=== PATIENT | male | born 1985 | race Caucasian/White ===

== ENCOUNTER 2016-05-09 16:26 | Inpatient (IN) | payer OTHER ==
[2016-05-09 17:19] VITALS: BMI 23.6
--- NOTE | 2016-05-09 19:04 | HP ---
COWS - Scale Resting Pulse: 0= [place] 80 or Below Sweatin= Chills/Flushing Restless Observation: 3= Extraneous Movement Pupil Size: 0= Normal to Room Light Bone or Joint Aches: 1= Mild Discomfort Runny Nose/ Eye Tearin= Nasal Congestion GI Upset > 30mins: 1= Stomach Cramp Tremor Observation: 2= Slight Tremor Visible Yawning Observation: 1= 1-2x During Session Anxiety or Irritability: 2=Irritable/Anxious Goose Flesh Skin: 3=Piloerection COWS Score: 15 Admission [facility] Chief Complaint: WITHDRAWAL SX Allergies/Adverse Reactions: Allergies Allergy/AdvReac Type Severity Reaction Status Date / Time No Known Allergies Allergy Verified 05/09/16 18:39 History of Present Illness: 30 YEARS OLD MALE WITH LONG HISTORY OF OPIATE NICOTINE DEPENDENCE, DENIES MEDICAL DENIES MENTAL ILLNESS, LONGEST SOBRIETY 6 MONTHS, IS ADMITTED TO DETOX FELL 05/06/16 MULTIPLE SUPERFICIAL SKIN ABRASION ON HANDS, DENIES PAIN Exam Limitations: No Limitations - Ebola screening Have you traveled outside of the country in the last 21 days: No (N) Have you had contact with anyone from an Ebola affected area: No Have you been sick,other than usual withdrawal symptoms: No Do you have a fever: No - Review of Systems Constitutional: Chills, Loss of Appetite, Changes in sleep, Unintentional Wgt. Loss EENT: reports: No Symptoms Reported Respiratory: reports: No Symptoms reported Cardiac: reports: No Symptoms Reported GI: reports: Nausea, Poor Appetite, Poor Fluid Intake, Abdominal cramping : reports: No Symptoms Reported Musculoskeletal: reports: Back Pain, Joint Pain, Muscle Pain, Neck Pain Integumentary: reports: Change in Color (RIGHT INNER ELBOW) Neuro: reports: Tremors Endocrine: reports: No Symptoms Reported Hematology: reports: No Symptoms Reported Psychiatric: reports: Judgement Intact, Mood/Affect Appropiate, Orientated x3 Other Systems: Reviewed and Negative Patient History - Patient Medical History Hx Anemia: No Hx Asthma: No Hx Chronic Obstructive Pulmonary Disease (COPD): No Hx Cancer: No Hx Cardiac Disorders: No Hx Congestive Heart Failure: No Hx Hypertension: No Hx Hypercholesterolemia: No Hx Pacemaker: No HX Cerebrovascular Accident: No Hx Seizures: No Hx Dementia: No Hx Diabetes: No Hx Gastrointestinal Disorders: No Hx Liver Disease: No Hx Genitourinary Disorders: No Hx Sexually Transmitted Disorders: No Hx Renal Disease (ESRD): No Hx Thyroid Disease: No Hx Human Immunodeficiency Virus (HIV): No (negative ) Hx Hepatitis C: No Hx Depression: No Hx Suicide Attempt: No Hx Bipolar Disorder: No Hx Schizophrenia: No - Patient Surgical History Past Surgical History: Yes Hx Neurologic Surgery: No Hx Cataract Extraction: No Hx Cardiac Surgery: No Hx Lung Surgery: No Hx Breast Surgery: No Hx Breast Biopsy: No Hx Abdominal Surgery: No Hx Appendectomy: No Hx Cholecystectomy: No Hx Genitourinary Surgery: No Hx Orthopedic Surgery: Yes (RT. THUMB FOR CHIP BONE in 2004 in [facility]) Anesthesia Reaction: No - PPD History Previous Implant?: Yes Documented Results: Negative w/proof Implanted On Prior [facility] Admission?: Yes Date: 04/11/16 Results: 0 mm PPD to be Administered?: No - Smoking Cessation Smoking history: Current every day smoker Have you smoked in the past 12 months: Yes Aproximately how many cigarettes per day: 10 Cigars Per Day: 0 Hx Chewing Tobacco Use: No Initiated information on smoking cessation: Yes 'Breaking Loose' booklet given: 05/09/16 - Substance & Tx. History Hx Alcohol Use: No Hx Substance Use: Yes Substance Use Type: Cocaine, Opiates Hx Substance Use Treatment: Yes - Substances Abused Heroin Route: Injection Frequency: Daily Amount used: 8 BAGS Age of first use: 29 Date of Last Use: 05/09/16 Cocaine Route: Injection Frequency: Daily Amount used: 1 BAG Age of first use: 19 Date of Last Use: 05/08/16 Family Disease History - Family Disease History Family Disease History: Heart Disease: Father, Mother (, etoh) Admission Physical Exam S - Vital Signs Vital Signs: Vital Signs - 24 hr 05/09/16 17:16 Temperature 96.7 F L Pulse Rate 76 Respiratory 20 Rate Blood Pressure 109/58 - Physical General Appearance: Yes: Appropriately Dressed, Mild Distress, Thin, Tremorous, Irritable, Sweating, Anxious HEENTM: Yes: Hearing grossly Normal, Normal ENT Inspection, Normocephalic, Normal Voice Respiratory: Yes: Chest Non-Tender, Labored Respiration, No Respiratory Distress , No Accessory Muscle Use, Rhonchi, Inspiration Neck: Yes: Supple, Trachea in good position Breast: Yes: Breasts Symetrical Cardiology: Yes: Regular Rhythm, Regular Rate, S1, S2 Abdominal: Yes: Non Tender, Soft, Increased Bowel Sounds Genitourinary: Yes: Within Normal Limits Back: Yes: Normal Inspection Musculoskeletal: Yes: full range of Motion, Gait Steady Extremities: Yes: Normal Range of Motion, Non-Tender, Tremors, Other (HANDS MULTIPLE SKIN ABRASION SUPERFICIAL FELL 05/06/16) Neurological: Yes: Fully Oriented, Alert, Motor Strength 5/5, Normal Response Integumentary: Yes: Warm, Moist Lymphatic: Yes: Within Normal Limits - Diagnostic (1) Nicotine dependence Current Visit: Yes Status: Acute Qualifiers: Nicotine product type: cigarettes Substance use status: uncomplicated Qualified Code(s): F17.210 - Nicotine dependence, cigarettes, uncomplicated (2) Opioid dependence with withdrawal Current Visit: Yes Status: Acute (3) Weight decreased Current Visit: Yes Status: Acute (4) Skin abrasion Current Visit: Yes Status: Acute (5) Bronchitis Current Visit: Yes Status: Acute Comment: VENTOLIN SYMBICORT Cleared for Admission [facility] - Detox or Rehab [facility] Level of Care: Medically Managed Detox Regimen/Protocol: Methadone [facility] Breath Alcohol Content Breath Alcohol Content: 0 Urine Drug Screen - Results Drug Screen Negative: No Urine Drug Screen Results: OLI-Cocaine, OPI-Opiates, OXY-Oxycodone
[2016-05-09] MEDS ORDERED: MAGNESIUM HYDROX 2400MG/30ML ORAL SUSPENSION 30 ML CUP PO PRN (19:07)
[2016-05-09] MEDS ORDERED: guaiFENesin/D-METHORPHAN HB 10 ML UNIT-DOSE CUPS PO PRN (19:07)
[2016-05-09] MEDS ORDERED: NICOTINE POLACRILEX 2 MG GUM BC PRN (19:07)
[2016-05-09] MEDS ORDERED: ACETAMINOPHEN 325 MG TABLET (FP) PO PRN (19:07)
[2016-05-09] MEDS ORDERED: MAGNESIUM CITRATE 300 ML BOTTLE PO PRN (19:07)
[2016-05-09] MEDS ORDERED: LOPERAMIDE HCL 2 MG CAPSULE PO PRN (19:07)
[2016-05-09] MEDS ORDERED: diphenhydrAMINE HCL 50 MG CAPSULE PO PRN (19:07)
[2016-05-09] MEDS ORDERED: METHADONE HCL 10 MG TABLET (FOR DETOX USE ONLY) PO ONE ×2 (19:07→23:00)
[2016-05-09] MEDS ORDERED: IBUPROFEN 400 MG TABLET (FP) PO PRN (19:07)
[2016-05-09] MEDS ORDERED: MAG HYDROX/AL HYDROX/SIMETH 30 ML UNIT-DOSE CUP PO PRN (19:07)
[2016-05-09] MEDS ORDERED: MENTHOL/PHENOL 1 EACH UD MM PRN (19:07)
[2016-05-09] MEDS ORDERED: P-EPHED 60MG/TRIPROLIDI 2.5MG TABLET PO PRN (19:07)
[2016-05-09] MEDS ORDERED: BACITRACIN 0.9 GM PACKET TP ONE (19:08)
[2016-05-09] MEDS ORDERED: ALBUTEROL SO4 6.7 GM HFA INHALER IH PRN (19:11)
[2016-05-09] MEDS ORDERED: ALBUTEROL SO4 2.5/IPRATROPIUM 0.5 INH SOL 3 ML VIAL.NEB. NEB PRN (19:17)
[2016-05-09] MEDS: diazePAM 5 MG TABLET PO PRN ×2 (19:46→22:47)
[2016-05-09] MEDS: THIAMINE HCL 100 MG TABLET (FP) PO SCH (22:22)
[2016-05-09] MEDS: BUDESONIDE/FORMETEROL FUMARATE 80/4.5 mcg INHALER IH SCH (22:22)
[2016-05-10] MEDS: diazePAM 5 MG TABLET PO PRN ×4 (05:37→20:26)
[2016-05-10] MEDS ORDERED: METHADONE HCL 10 MG TABLET (FOR DETOX USE ONLY) PO ONE (10:00)
--- NOTE | 2016-05-10 10:07 | PN ---
BHS COWS - Scale Resting Pulse: 0= [place] 80 or Below Sweatin= Chills/Flushing Restless Observation: 3= Extraneous Movement Pupil Size: 2= Moderately Dilated Bone or Joint Aches: 4=Acute Joint/Muscle Pain Runny Nose/ Eye Tearin= Nasal Congestion GI Upset > 30mins: 1= Stomach Cramp Tremor Observation of Outstretched Hands: 1= Tremor [place], Not Seen Yawning Observation: 2= >3x During Session Anxiety or Irritability: 2=Irritable/Anxious Goose Flesh Skin: 0=Smooth Skin COWS Score: 17 BHS Progress Note (SOAP) Subjective: ANXIETY,SWEATS/CHILLS,FATIGUE. Objective: 05/10/16 10:06 Vital Signs Temperature 96.0 F L 05/10/16 09:29 Pulse Rate 80 05/10/16 09:29 Respiratory Rate 20 05/10/16 09:29 Blood Pressure 136/80 05/10/16 09:29 O2 Sat by Pulse Oximetry (%) LAB RESULTS PENDING Assessment: 05/10/16 10:07 WITHDRAWAL SX Plan: CONTINUE DETOX
[2016-05-10] MEDS: BUDESONIDE/FORMETEROL FUMARATE 80/4.5 mcg INHALER IH SCH ×2 (10:16→23:52)
[2016-05-10] MEDS: PRENATAL VITAMINS W/ FOLIC ACID TABLET (FP) PO SCH (10:16)
[2016-05-10] MEDS: NICOTINE 14 MG/24 HOURS TOPICAL PATCH TD SCH (10:16)
[2016-05-10 10:33] LABS: MCH 29.6 pg (25.7-33.7); MCHC 33.6 g/dl (32.0-35.9); MEAN CELL VOLUME 88.3 fl (80-96); MEAN PLT VOLUME 9.3 fl (7.5-11.1); PLATELET COUNT 196 K/MM3 (134-434); RDW 14.5 % (11.9-15.9); WHITE BLOOD COUNT 5.6 K/mm3 (4.0-10.0)
[2016-05-10 11:22] LABS: ALBUMIN 3.7 g/dl (3.4-5.0); ALK PHOS 66 U/L (45-117); ANION GAP 8 (8-16); BILIRUBIN,TOTAL 0.4 mg/dL (0.2-1.0); CALCIUM 9.2 mg/dL (8.5-10.1); CO2 29 mmol/L (21-32); CREATININE 0.8 mg/dL (0.7-1.3); GLUCOSE,RANDOM 87 mg/dL (74-106); SGOT/AST 18 U/L (15-37); SGPT/ALT 23 U/L (12-78); TOT PROT 6.6 g/dl (6.4-8.2)
--- NOTE | 2016-05-10 16:22 | EKG ---
Test Reason : Blood Pressure : / mmHG Vent. Rate : 067 BPM Atrial Rate : 067 BPM P-R Int : 152 ms QRS Dur : 100 ms QT Int : 396 ms P-R-T Axes : 055 032 032 degrees QTc Int : 418 ms NORMAL SINUS RHYTHM INCOMPLETE RIGHT BUNDLE BRANCH BLOCK BORDERLINE ECG NO PREVIOUS ECGS AVAILABLE Confirmed by STEFFANY BRASWELL MD ([id number]) on 05/10/2016 4:22:04 PM Referred By: Confirmed By:STEFFANY BRASWELL MD
[2016-05-10] MEDS: THIAMINE HCL 100 MG TABLET (FP) PO SCH (23:52)
[2016-05-11] MEDS: diazePAM 5 MG TABLET PO PRN ×4 (03:26→20:13)
[2016-05-11] MEDS ORDERED: METHADONE HCL 5 MG TABLET (FOR DETOX USE ONLY) PO ONE (10:00)
--- NOTE | 2016-05-11 10:00 | PN ---
BHS COWS - Scale Resting Pulse: 2= [place] 101-120 Sweatin= Chills/Flushing Restless Observation: 3= Extraneous Movement Pupil Size: 2= Moderately Dilated Bone or Joint Aches: 4=Acute Joint/Muscle Pain Runny Nose/ Eye Tearin= Nasal Congestion GI Upset > 30mins: 1= Stomach Cramp Tremor Observation of Outstretched Hands: 2= Slight Tremor Visible Yawning Observation: 1= 1-2x During Session Anxiety or Irritability: 2=Irritable/Anxious Goose Flesh Skin: 0=Smooth Skin COWS Score: 19 BHS Progress Note (SOAP) Subjective: ANXIETY,SWEATS/CHILLS/FATIGUE Objective: 05/11/16 09:59 Vital Signs Temperature 98.3 F 05/11/16 06:24 Pulse Rate 79 05/11/16 06:24 Respiratory Rate 18 05/11/16 06:24 Blood Pressure 139/81 05/11/16 06:24 O2 Sat by Pulse Oximetry (%) Laboratory Last Values WBC 5.6 K/mm3 (4.0-10.0) 05/10/16 06:30 RBC 4.74 M/mm3 (4.00-5.60) 05/10/16 06:30 Hgb 14.0 GM/dL (11.7-16.9) 05/10/16 06:30 Hct 41.8 % (35.4-49) 05/10/16 06:30 MCV 88.3 fl (80-96) 05/10/16 06:30 MCHC 33.6 g/dl (32.0-35.9) 05/10/16 06:30 RDW 14.5 % (11.9-15.9) 05/10/16 06:30 Plt Count 196 K/MM3 (134-434) 05/10/16 06:30 MPV 9.3 fl (7.5-11.1) 05/10/16 06:30 Sodium 141 mmol/L (136-145) 05/10/16 06:30 Potassium 4.3 mmol/L (3.5-5.1) 05/10/16 06:30 Chloride 104 mmol/L (98-107) 05/10/16 06:30 Carbon Dioxide 29 mmol/L (21-32) 05/10/16 06:30 Anion Gap 8 (8-16) 05/10/16 06:30 BUN 15 mg/dL (7-18) D 05/10/16 06:30 Creatinine 0.8 mg/dL (0.7-1.3) 05/10/16 06:30 Creat Clearance w eGFR > 60 (>60) 05/10/16 06:30 Random Glucose 87 mg/dL (74-106) 05/10/16 06:30 Calcium 9.2 mg/dL (8.5-10.1) 05/10/16 06:30 Total Bilirubin 0.4 mg/dL (0.2-1.0) 05/10/16 06:30 AST 18 U/L (15-37) 05/10/16 06:30 ALT 23 U/L (12-78) 05/10/16 06:30 Alkaline Phosphatase 66 U/L (45-117) 05/10/16 06:30 Total Protein 6.6 g/dl (6.4-8.2) 05/10/16 06:30 Albumin 3.7 g/dl (3.4-5.0) 05/10/16 06:30 RPR Titer Nonreactive (NONREACTIVE) 05/10/16 06:30 Hepatitis C Antibody <0.1 s/co ratio (0.0-0.9) 05/10/16 06:30 Assessment: 05/11/16 10:00 WITHDRAWAL SX Plan: CONTINUE DETOX
[2016-05-11] MEDS: NICOTINE 14 MG/24 HOURS TOPICAL PATCH TD SCH (10:04)
[2016-05-11] MEDS: PRENATAL VITAMINS W/ FOLIC ACID TABLET (FP) PO SCH (10:04)
[2016-05-11] MEDS: BUDESONIDE/FORMETEROL FUMARATE 80/4.5 mcg INHALER IH SCH ×2 (10:04→22:26)
[2016-05-11] MEDS: THIAMINE HCL 100 MG TABLET (FP) PO SCH (22:26)
[2016-05-12] MEDS: diazePAM 5 MG TABLET PO PRN (05:35)
[2016-05-12] MEDS ORDERED: METHADONE HCL 5 MG TABLET (FOR DETOX USE ONLY) PO ONE (10:00)
[2016-05-12 10:14] VITALS: BP 103/72; PULSE 87; TEMP 96.2
--- NOTE | 2016-05-12 10:20 | DS ---
[facility] Detox Discharge Summary Admission Date: 05/09/16 Discharge Date: 05/12/16 - History Present History: Alcohol Dependence, Cocaine Dependence, Opioid Dependence Additional Comments: PT DECLINED TO CONTINUE WITH DETOX. WHEN ASKED THE REASON, PT STATES " I JUST WANNA GET OUT OF HERE'. ALERT O X 3. NAD. PT SIGNED OUT AMA. Pertinent Past History: BRONCHITIS - Physical Exam Results Vital Signs: Vital Signs Temperature 96.2 F L 05/12/16 10:13 Pulse Rate 87 05/12/16 10:13 Respiratory Rate 18 05/12/16 10:13 Blood Pressure 103/72 05/12/16 10:13 O2 Sat by Pulse Oximetry (%) Pertinent Admission Physical Exam Findings: WITHDRAWAL SX Laboratory Last Values WBC 5.6 K/mm3 (4.0-10.0) 05/10/16 06:30 RBC 4.74 M/mm3 (4.00-5.60) 05/10/16 06:30 Hgb 14.0 GM/dL (11.7-16.9) 05/10/16 06:30 Hct 41.8 % (35.4-49) 05/10/16 06:30 MCV 88.3 fl (80-96) 05/10/16 06:30 MCHC 33.6 g/dl (32.0-35.9) 05/10/16 06:30 RDW 14.5 % (11.9-15.9) 05/10/16 06:30 Plt Count 196 K/MM3 (134-434) 05/10/16 06:30 MPV 9.3 fl (7.5-11.1) 05/10/16 06:30 Sodium 141 mmol/L (136-145) 05/10/16 06:30 Potassium 4.3 mmol/L (3.5-5.1) 05/10/16 06:30 Chloride 104 mmol/L (98-107) 05/10/16 06:30 Carbon Dioxide 29 mmol/L (21-32) 05/10/16 06:30 Anion Gap 8 (8-16) 05/10/16 06:30 BUN 15 mg/dL (7-18) D 05/10/16 06:30 Creatinine 0.8 mg/dL (0.7-1.3) 05/10/16 06:30 Creat Clearance w eGFR > 60 (>60) 05/10/16 06:30 Random Glucose 87 mg/dL (74-106) 05/10/16 06:30 Calcium 9.2 mg/dL (8.5-10.1) 05/10/16 06:30 Total Bilirubin 0.4 mg/dL (0.2-1.0) 05/10/16 06:30 AST 18 U/L (15-37) 05/10/16 06:30 ALT 23 U/L (12-78) 05/10/16 06:30 Alkaline Phosphatase 66 U/L (45-117) 05/10/16 06:30 Total Protein 6.6 g/dl (6.4-8.2) 05/10/16 06:30 Albumin 3.7 g/dl (3.4-5.0) 05/10/16 06:30 RPR Titer Nonreactive (NONREACTIVE) 05/10/16 06:30 Hepatitis C Antibody <0.1 s/co ratio (0.0-0.9) 05/10/16 06:30 - Medication Discharge Medications: Ambulatory Orders NK [No Known Home Medication] 03/30/15 - Diagnosis (1) Nicotine dependence Current Visit: Yes Status: Chronic Qualifiers: Nicotine product type: cigarettes Substance use status: uncomplicated Qualified Code(s): F17.210 - Nicotine dependence, cigarettes, uncomplicated (2) Opioid dependence with withdrawal Current Visit: Yes Status: Acute (3) Alcohol dependence with uncomplicated withdrawal Current Visit: No Status: Suspected (4) Cocaine dependence Current Visit: Yes Status: Acute Qualifiers: Substance use status: uncomplicated Qualified Code(s): F14.20 - Cocaine dependence, uncomplicated (5) Bronchitis Current Visit: Yes Status: Acute (6) Skin abrasion Current Visit: Yes Status: Acute - AMA Did Patient Leave Against Medical Advice: Yes (AMA)
[2016-05-12] MEDS: NICOTINE 14 MG/24 HOURS TOPICAL PATCH TD SCH (10:53)
[2016-05-12] MEDS: PRENATAL VITAMINS W/ FOLIC ACID TABLET (FP) PO SCH (10:53)
[2016-05-12] MEDS: BUDESONIDE/FORMETEROL FUMARATE 80/4.5 mcg INHALER IH SCH (10:53)
[2016-05-13] MEDS ORDERED: METHADONE HCL 10 MG TABLET (FOR DETOX USE ONLY) PO ONE (10:00)
[2016-05-14] MEDS ORDERED: METHADONE HCL 5 MG TABLET (FOR DETOX USE ONLY) PO ONE (06:00)
== END 2016-05-12 09:25 | disposition left against medical advice (07) | DRG 770 ==
LOC: YASAS 16:26 → Y3N 18:41
PROVIDERS: ADMIT Internal Medicine; ATTEND Internal Medicine
PROC: HZ2ZZZZ Detoxification Services for Substance Abuse Treatment (ICD-10-PCS; principal; 2016-05-09)
DX: F11.23 Opioid dependence with withdrawal (principal); F14.20 Cocaine dependence, uncomplicated; F17.210 Nicotine dependence, cigarettes, uncomplicated; J20.9 Acute bronchitis, unspecified; S60.512D Abrasion of left hand, subsequent encounter; S60.511D Abrasion of right hand, subsequent encounter; X58.XXXD Exposure to other specified factors, subsequent encounter; Z87.898 Personal history of other specified conditions
CPT/HCPCS: 36415; 80053; 85027; 86593; 86803; 93005; 93010

== ENCOUNTER 2016-05-27 13:28 | Inpatient (IN) | payer OTHER ==
[2016-05-27 16:01] VITALS: BMI 26.3
--- NOTE | 2016-05-27 16:59 | HP ---
COWS - Scale Resting Pulse: 0= [place] 80 or Below Sweatin=Flushed/Facial Moisture Restless Observation: 1= Difficult to Sit Still Pupil Size: 0= Normal to Room Light Bone or Joint Aches: 2= Severe Diffuse Aches Runny Nose/ Eye Tearin= Runny Nose/Eyes GI Upset > 30mins: 2= Nausea/Diarrhea Tremor Observation: 2= Slight Tremor Visible Yawning Observation: 2= >3x During Session Anxiety or Irritability: 2=Irritable/Anxious Goose Flesh Skin: 3=Piloerection COWS Score: 18 Admission ROS S - HPI Chief Complaint: I need to get my life back. Allergies/Adverse Reactions: Allergies Allergy/AdvReac Type Severity Reaction Status Date / Time No Known Allergies Allergy Verified 05/27/16 16:49 History of Present Illness: pt is a 31yr old male with a history of heroin dependence seeking detox for treatment. Exam Limitations: No Limitations - Ebola screening Have you traveled outside of the country in the last 21 days: No Have you had contact with anyone from an Ebola affected area: No Have you been sick,other than usual withdrawal symptoms: No Do you have a fever: No - Review of Systems Constitutional: Chills, Diaphoresis, Loss of Appetite, Night Sweats, Changes in sleep, Unintentional Wgt. Loss EENT: reports: Tearing, Nose Congestion Respiratory: reports: Cough Cardiac: reports: No Symptoms Reported GI: reports: Poor Appetite, Poor Fluid Intake : reports: No Symptoms Reported Musculoskeletal: reports: Back Pain Integumentary: reports: Flushing, Sweating Neuro: reports: Headache, Tingling, Tremors Endocrine: reports: Excessive Sweating, Flushing, Intolerance to Cold, Intolerance to Heat Hematology: reports: No Symptoms Reported Psychiatric: reports: Judgement Intact, Mood/Affect Appropiate, Orientated x3, Agitated, Anxious Other Systems: Reviewed and Negative Patient History - Patient Medical History Hx Anemia: No Hx Asthma: No Hx Chronic Obstructive Pulmonary Disease (COPD): No Hx Cancer: No Hx Cardiac Disorders: No Hx Congestive Heart Failure: No Hx Hypertension: No Hx Hypercholesterolemia: No Hx Pacemaker: No HX Cerebrovascular Accident: No Hx Seizures: No Hx Dementia: No Hx Diabetes: No Hx Gastrointestinal Disorders: No Hx Liver Disease: No Hx Genitourinary Disorders: No Hx Sexually Transmitted Disorders: No Hx Renal Disease (ESRD): No Hx Thyroid Disease: No Hx Human Immunodeficiency Virus (HIV): No (negative ) Hx Hepatitis C: No (negative) Hx Depression: No Hx Suicide Attempt: No (denies) Hx Bipolar Disorder: No Hx Schizophrenia: No - Patient Surgical History Past Surgical History: Yes Hx Neurologic Surgery: No Hx Cataract Extraction: No Hx Cardiac Surgery: No Hx Lung Surgery: No Hx Breast Surgery: No Hx Breast Biopsy: No Hx Abdominal Surgery: No Hx Appendectomy: No Hx Cholecystectomy: No Hx Genitourinary Surgery: No Hx Section: No Hx Orthopedic Surgery: Yes (RT. THUMB FOR CHIP BONE in 2004 in [facility]) Anesthesia Reaction: No - PPD History Previous Implant?: Yes Documented Results: Negative w/o proof Date: 04/11/16 Results: 0 mm PPD to be Administered?: No - Reproductive History Patient is a Female of Child Bearing Age (11 -55 yrs old): No - Smoking Cessation Smoking history: Current every day smoker Have you smoked in the past 12 months: Yes Aproximately how many cigarettes per day: 10 Cigars Per Day: 0 Hx Chewing Tobacco Use: No Initiated information on smoking cessation: Yes 'Breaking Loose' booklet given: 05/27/16 - Substance & Tx. History Hx Substance Use: Yes Substance Use Type: Heroin Hx Substance Use Treatment: Yes Family Disease History - Family Disease History Family Disease History: Heart Disease: Father, Mother (, etoh) Admission Physical Exam BHS - Vital Signs Vital Signs: Vital Signs - 24 hr 05/27/16 14:51 Temperature 96.1 F L Pulse Rate 68 Respiratory 18 Rate Blood Pressure 109/60 - Physical General Appearance: Yes: Mild Distress, Moderate Distress, Tremorous, Irritable , Sweating HEENTM: Yes: Normal Voice, Nasal Congestion, Rhinorrhea Respiratory: Yes: Lungs Clear, Normal Breath Sounds, No Respiratory Distress Neck: Yes: No masses,lesions,Nodules Breast: Yes: Within Normal Limits Cardiology: Yes: Regular Rhythm, Regular Rate, S1, S2 Abdominal: Yes: Normal Bowel Sounds, Non Tender, Soft Genitourinary: Yes: Within Normal Limits Back: Yes: Normal Inspection Musculoskeletal: Yes: full range of Motion Extremities: Yes: Normal Capillary Refill, Normal Inspection, Tremors Neurological: Yes: Fully Oriented, Alert, Normal Response Integumentary: Yes: Normal Color, Diaphoresis, Track [place] Lymphatic: Yes: Within Normal Limits - Diagnostic (1) Cocaine dependence Current Visit: Yes Status: Chronic Qualifiers: Substance use status: uncomplicated Qualified Code(s): F14.20 - Cocaine dependence, uncomplicated (2) Nicotine dependence Current Visit: Yes Status: Chronic Qualifiers: Nicotine product type: cigarettes Substance use status: uncomplicated Qualified Code(s): F17.210 - Nicotine dependence, cigarettes, uncomplicated (3) Opioid dependence with withdrawal Current Visit: Yes Status: Chronic (4) Weight decreased Current Visit: Yes Status: Chronic Cleared for Admission [facility] - Detox or Rehab [facility] Level of Care: Medically Managed Detox Regimen/Protocol: Methadone [facility] Breath Alcohol Content Breath Alcohol Content: 0 Urine Drug Screen - Results Drug Screen Negative: No Urine Drug Screen Results: THC-Marijuana, OLI-Cocaine, OPI-Opiates, OXY- Oxycodone
[2016-05-27] MEDS ORDERED: LOPERAMIDE HCL 2 MG CAPSULE PO PRN (17:07)
[2016-05-27] MEDS ORDERED: MENTHOL/PHENOL 1 EACH UD MM PRN (17:07)
[2016-05-27] MEDS ORDERED: MAGNESIUM CITRATE 300 ML BOTTLE PO PRN (17:07)
[2016-05-27] MEDS ORDERED: MAG HYDROX/AL HYDROX/SIMETH 30 ML UNIT-DOSE CUP PO PRN (17:07)
[2016-05-27] MEDS ORDERED: MAGNESIUM HYDROX 2400MG/30ML ORAL SUSPENSION 30 ML CUP PO PRN (17:07)
[2016-05-27] MEDS ORDERED: ACETAMINOPHEN 325 MG TABLET (FP) PO PRN (17:07)
[2016-05-27] MEDS ORDERED: IBUPROFEN 400 MG TABLET (FP) PO PRN (17:07)
[2016-05-27] MEDS ORDERED: P-EPHED 60MG/TRIPROLIDI 2.5MG TABLET PO PRN (17:07)
[2016-05-27] MEDS ORDERED: guaiFENesin/D-METHORPHAN HB 10 ML UNIT-DOSE CUPS PO PRN (17:07)
[2016-05-27] MEDS ORDERED: NICOTINE POLACRILEX 4 MG GUM BUC PRN (17:07)
[2016-05-27] MEDS ORDERED: METHADONE HCL 10 MG TABLET (FOR DETOX USE ONLY) PO ONE ×2 (18:30→23:00)
[2016-05-27] MEDS: diazePAM 5 MG TABLET PO PRN (19:19)
[2016-05-27] MEDS: diphenhydrAMINE HCL 50 MG CAPSULE PO PRN (22:36)
[2016-05-27] MEDS: THIAMINE HCL 100 MG TABLET (FP) PO SCH (22:36)
[2016-05-27 22:56] LABS: URINE APPEARANCE SLCLOUDY; URINE BILIRUBIN NEGATIVE (NEGATIVE); URINE BLOOD NEGATIVE (NEGATIVE); URINE COLOR YELLOW; URINE GLUCOSE (UA) NEGATIVE (NEGATIVE); URINE KETONE NEGATIVE (NEGATIVE); URINE LEUK ESTERASE NEGATIVE (NEGATIVE); URINE NITRITE NEGATIVE (NEGATIVE); URINE PROTEIN NEGATIVE (NEGATIVE); URINE UROBILINOGEN NEGATIVE E.U./dl (0.2-1.0)
[2016-05-28] MEDS: diazePAM 5 MG TABLET PO PRN ×3 (02:10→22:51)
[2016-05-28] MEDS: diphenhydrAMINE HCL 50 MG CAPSULE PO PRN ×2 (02:10→22:51)
[2016-05-28] MEDS ORDERED: METHADONE HCL 10 MG TABLET (FOR DETOX USE ONLY) PO ONE (10:00)
[2016-05-28] MEDS: PRENATAL VITAMINS W/ FOLIC ACID TABLET (FP) PO SCH (10:58)
[2016-05-28] MEDS: NICOTINE 21 MG/24 HOURS TOPICAL PATCH TD SCH (10:59)
[2016-05-28 11:05] LABS: MCH 29.4 pg (25.7-33.7); MCHC 33.4 g/dl (32.0-35.9); MEAN CELL VOLUME 88.1 fl (80-96); MEAN PLT VOLUME 8.8 fl (7.5-11.1); PLATELET COUNT 234 K/MM3 (134-434); RDW 14.2 % (11.9-15.9); WHITE BLOOD COUNT 5.8 K/mm3 (4.0-10.0)
[2016-05-28 11:11] LABS: ALBUMIN 3.6 g/dl (3.4-5.0); ALK PHOS 63 U/L (45-117); ANION GAP 10 (8-16); BILIRUBIN,TOTAL 0.3 mg/dL (0.2-1.0); CALCIUM 9.4 mg/dL (8.5-10.1); CO2 27 mmol/L (21-32); CREATININE 0.8 mg/dL (0.7-1.3); GLUCOSE,RANDOM 84 mg/dL (74-106); SGOT/AST 15 U/L (15-37); SGPT/ALT 18 U/L (12-78); TOT PROT 6.6 g/dl (6.4-8.2)
--- NOTE | 2016-05-28 12:48 | PN ---
S COWS - Scale Resting Pulse: 0= [place] 80 or Below Sweatin= Chills/Flushing Restless Observation: 3= Extraneous Movement Pupil Size: 1= Pupils >than Normal Bone or Joint Aches: 2= Severe Diffuse Aches Runny Nose/ Eye Tearin= Runny Nose/Eyes GI Upset > 30mins: 3= Vomiting/Diarrhea Tremor Observation of Outstretched Hands: 2= Slight Tremor Visible Yawning Observation: 1= 1-2x During Session Anxiety or Irritability: 2=Irritable/Anxious Goose Flesh Skin: 0=Smooth Skin COWS Score: 17 S Progress Note (SOAP) Subjective: ALERT,IRRITABLE,ANXIOUS,INTERRUPTED SLEEP,TREMOR Objective: 05/28/16 12:46 Vital Signs Temperature 96.9 F L 05/28/16 10:03 Pulse Rate 76 05/28/16 10:03 Respiratory Rate 16 05/28/16 10:03 Blood Pressure 130/84 05/28/16 10:03 O2 Sat by Pulse Oximetry (%) EKG NSR WITH SINUS ARRHYTHMIA NORMAL ECG 05/28/16 12:47 Laboratory Last Values WBC 5.8 K/mm3 (4.0-10.0) 05/28/16 08:00 RBC 4.72 M/mm3 (4.00-5.60) 05/28/16 08:00 Hgb 13.9 GM/dL (11.7-16.9) 05/28/16 08:00 Hct 41.6 % (35.4-49) 05/28/16 08:00 MCV 88.1 fl (80-96) 05/28/16 08:00 MCHC 33.4 g/dl (32.0-35.9) 05/28/16 08:00 RDW 14.2 % (11.9-15.9) 05/28/16 08:00 Plt Count 234 K/MM3 (134-434) 05/28/16 08:00 MPV 8.8 fl (7.5-11.1) 05/28/16 08:00 Sodium 142 mmol/L (136-145) 05/28/16 08:00 Potassium 4.1 mmol/L (3.5-5.1) 05/28/16 08:00 Chloride 105 mmol/L (98-107) 05/28/16 08:00 Carbon Dioxide 27 mmol/L (21-32) 05/28/16 08:00 Anion Gap 10 (8-16) 05/28/16 08:00 BUN 14 mg/dL (7-18) 05/28/16 08:00 Creatinine 0.8 mg/dL (0.7-1.3) 05/28/16 08:00 Creat Clearance w eGFR > 60 (>60) 05/28/16 08:00 Random Glucose 84 mg/dL (74-106) 05/28/16 08:00 Calcium 9.4 mg/dL (8.5-10.1) 05/28/16 08:00 Total Bilirubin 0.3 mg/dL (0.2-1.0) D 05/28/16 08:00 AST 15 U/L (15-37) 05/28/16 08:00 ALT 18 U/L (12-78) D 05/28/16 08:00 Alkaline Phosphatase 63 U/L (45-117) 05/28/16 08:00 Total Protein 6.6 g/dl (6.4-8.2) 05/28/16 08:00 Albumin 3.6 g/dl (3.4-5.0) 05/28/16 08:00 Urine Color Yellow 05/27/16 22:09 Urine Appearance Slcloudy 05/27/16 22:09 Urine pH 5.0 (5.0-8.0) D 05/27/16 22:09 Ur Specific [place] 1.027 (1.001-1.035) 05/27/16 22:09 Urine Protein Negative (NEGATIVE) 05/27/16 22:09 Urine Glucose (UA) Negative (NEGATIVE) 05/27/16 22:09 Urine Ketones Negative (NEGATIVE) 05/27/16 22:09 Urine Blood Negative (NEGATIVE) 05/27/16 22:09 Urine Nitrite Negative (NEGATIVE) 05/27/16 22:09 Urine Bilirubin Negative (NEGATIVE) 05/27/16 22:09 Urine Urobilinogen Negative E.U./dl (0.2-1.0) 05/27/16 22:09 Ur Leukocyte Esterase Negative (NEGATIVE) 05/27/16 22:09 Assessment: 05/28/16 12:47 WITHDRAWAL SYMPTOM Plan: CONTINUE DETOX
[2016-05-28 14:15] LABS: HIV 1 & 2 AB NEGATIVE; HIV 1 AGp24 NEGATIVE
--- NOTE | 2016-05-28 18:40 | EKG ---
Test Reason : Blood Pressure : / mmHG Vent. Rate : 067 BPM Atrial Rate : 067 BPM P-R Int : 144 ms QRS Dur : 100 ms QT Int : 412 ms P-R-T Axes : 068 022 048 degrees QTc Int : 435 ms NORMAL SINUS RHYTHM WITH SINUS ARRHYTHMIA NORMAL ECG WHEN COMPARED WITH ECG OF 09-MAY-2016 19:55, RSR' PATTERN IN V1 IS NO LONGER PRESENT Confirmed by YAMIL ROBLES, BETTY ([id number]) on 05/28/2016 6:39:50 PM Referred By: Quinten Lopez Confirmed By:BETTY LOBO MD
[2016-05-28] MEDS: THIAMINE HCL 100 MG TABLET (FP) PO SCH (22:51)
[2016-05-29] MEDS: diazePAM 5 MG TABLET PO PRN ×4 (05:59→23:17)
[2016-05-29] MEDS ORDERED: METHADONE HCL 5 MG TABLET (FOR DETOX USE ONLY) PO ONE (10:00)
[2016-05-29] MEDS: PRENATAL VITAMINS W/ FOLIC ACID TABLET (FP) PO SCH (10:32)
[2016-05-29] MEDS: NICOTINE 21 MG/24 HOURS TOPICAL PATCH TD SCH (10:33)
--- NOTE | 2016-05-29 11:45 | PN ---
BHS COWS - Scale Resting Pulse: 0= [place] 80 or Below Sweatin= Chills/Flushing Restless Observation: 3= Extraneous Movement Pupil Size: 1= Pupils >than Normal Bone or Joint Aches: 2= Severe Diffuse Aches Runny Nose/ Eye Tearin= Runny Nose/Eyes GI Upset > 30mins: 2= Nausea/Diarrhea Tremor Observation of Outstretched Hands: 2= Slight Tremor Visible Yawning Observation: 1= 1-2x During Session Anxiety or Irritability: 2=Irritable/Anxious Goose Flesh Skin: 0=Smooth Skin COWS Score: 16 S Progress Note (SOAP) Subjective: ALERT,IRRITABLE,ANXIOUS,INTERRUPTED SLEEP,PAIN IN THE BODY AND BACK Objective: 05/29/16 11:44 Vital Signs Temperature 96.6 F L 05/29/16 11:00 Pulse Rate 79 05/29/16 11:00 Respiratory Rate 20 05/29/16 11:00 Blood Pressure 121/76 05/29/16 11:00 O2 Sat by Pulse Oximetry (%) 05/29/16 11:44 Laboratory Last Values WBC 5.8 K/mm3 (4.0-10.0) 05/28/16 08:00 RBC 4.72 M/mm3 (4.00-5.60) 05/28/16 08:00 Hgb 13.9 GM/dL (11.7-16.9) 05/28/16 08:00 Hct 41.6 % (35.4-49) 05/28/16 08:00 MCV 88.1 fl (80-96) 05/28/16 08:00 MCHC 33.4 g/dl (32.0-35.9) 05/28/16 08:00 RDW 14.2 % (11.9-15.9) 05/28/16 08:00 Plt Count 234 K/MM3 (134-434) 05/28/16 08:00 MPV 8.8 fl (7.5-11.1) 05/28/16 08:00 Sodium 142 mmol/L (136-145) 05/28/16 08:00 Potassium 4.1 mmol/L (3.5-5.1) 05/28/16 08:00 Chloride 105 mmol/L (98-107) 05/28/16 08:00 Carbon Dioxide 27 mmol/L (21-32) 05/28/16 08:00 Anion Gap 10 (8-16) 05/28/16 08:00 BUN 14 mg/dL (7-18) 05/28/16 08:00 Creatinine 0.8 mg/dL (0.7-1.3) 05/28/16 08:00 Creat Clearance w eGFR > 60 (>60) 05/28/16 08:00 Random Glucose 84 mg/dL (74-106) 05/28/16 08:00 Calcium 9.4 mg/dL (8.5-10.1) 05/28/16 08:00 Total Bilirubin 0.3 mg/dL (0.2-1.0) D 05/28/16 08:00 AST 15 U/L (15-37) 05/28/16 08:00 ALT 18 U/L (12-78) D 05/28/16 08:00 Alkaline Phosphatase 63 U/L (45-117) 05/28/16 08:00 Total Protein 6.6 g/dl (6.4-8.2) 05/28/16 08:00 Albumin 3.6 g/dl (3.4-5.0) 05/28/16 08:00 Urine Color Yellow 05/27/16 22:09 Urine Appearance Slcloudy 05/27/16 22:09 Urine pH 5.0 (5.0-8.0) D 05/27/16 22:09 Ur Specific [place] 1.027 (1.001-1.035) 05/27/16 22:09 Urine Protein Negative (NEGATIVE) 05/27/16 22:09 Urine Glucose (UA) Negative (NEGATIVE) 05/27/16 22:09 Urine Ketones Negative (NEGATIVE) 05/27/16 22:09 Urine Blood Negative (NEGATIVE) 05/27/16 22:09 Urine Nitrite Negative (NEGATIVE) 05/27/16 22:09 Urine Bilirubin Negative (NEGATIVE) 05/27/16 22:09 Urine Urobilinogen Negative E.U./dl (0.2-1.0) 05/27/16 22:09 Ur Leukocyte Esterase Negative (NEGATIVE) 05/27/16 22:09 RPR Titer Nonreactive (NONREACTIVE) 05/28/16 08:00 HIV 1&2 Antibody Screen Negative 05/28/16 08:00 HIV P24 Antigen Negative 05/28/16 08:00 Assessment: WITHDRAWAL SYMPTOM Plan: CONTINUE DETOX
[2016-05-29] MEDS: THIAMINE HCL 100 MG TABLET (FP) PO SCH (22:55)
[2016-05-29] MEDS: diphenhydrAMINE HCL 50 MG CAPSULE PO PRN (23:18)
[2016-05-30] MEDS ORDERED: METHADONE HCL 5 MG TABLET (FOR DETOX USE ONLY) PO ONE (10:00)
[2016-05-30] MEDS: diazePAM 5 MG TABLET PO PRN ×2 (10:17→15:17)
[2016-05-30] MEDS: PRENATAL VITAMINS W/ FOLIC ACID TABLET (FP) PO SCH (10:17)
[2016-05-30] MEDS: NICOTINE 21 MG/24 HOURS TOPICAL PATCH TD SCH (10:18)
--- NOTE | 2016-05-30 11:31 | PN ---
S Progress Note (SOAP) Subjective: ALERT,IRRITABLE,ANXIOUS,INTERRUPTED SLEEP,TREMOR Objective: 05/30/16 11:30 Vital Signs Temperature 98.2 F 05/30/16 10:17 Pulse Rate 95 H 05/30/16 10:17 Respiratory Rate 20 05/30/16 10:17 Blood Pressure 123/73 05/30/16 10:17 O2 Sat by Pulse Oximetry (%) Assessment: 05/30/16 11:31 WITHDRAWAL SYMPTOM Plan: CONTINUE DETOX
[2016-05-30] MEDS: hydrOXYzine PAMOATE 50 MG CAPSULE (FP) PO PRN (19:18)
[2016-05-30] MEDS: THIAMINE HCL 100 MG TABLET (FP) PO SCH (23:09)
[2016-05-31] MEDS ORDERED: METHADONE HCL 10 MG TABLET (FOR DETOX USE ONLY) PO ONE (10:00)
[2016-05-31 10:26] VITALS: BP 121/71; PULSE 83; TEMP 97.5
[2016-05-31] MEDS: PRENATAL VITAMINS W/ FOLIC ACID TABLET (FP) PO SCH (10:27)
[2016-05-31] MEDS: hydrOXYzine PAMOATE 50 MG CAPSULE (FP) PO PRN (10:27)
[2016-05-31] MEDS: NICOTINE 21 MG/24 HOURS TOPICAL PATCH TD SCH (10:27)
--- NOTE | 2016-05-31 11:05 | PN ---
S Progress Note (SOAP) Subjective: ALERT,IRRITABLE,INTERRUPTED SLEEP,TREMOR Objective: 05/31/16 11:04 Vital Signs Temperature 97.5 F L 05/31/16 10:25 Pulse Rate 83 05/31/16 10:25 Respiratory Rate 18 05/31/16 10:25 Blood Pressure 121/71 05/31/16 10:25 O2 Sat by Pulse Oximetry (%) Assessment: 05/31/16 11:04 WITHDRAWAL SYMPTOM Plan: CONTINUE DETOX,DISCHARGE IN AM
--- NOTE | 2016-05-31 12:00 | PN ---
S Progress Note Note: patient is stable for discharge today,follow up with after care program as arrangement
--- NOTE | 2016-05-31 12:03 | DS ---
[facility] Detox Discharge Summary Admission Date: 05/27/16 Discharge Date: 05/31/16 - History Present History: Cocaine Dependence, Opioid Dependence Additional Comments: patient is stable for discharge today,follow up with after care program as arrangement Pertinent Past History: nicotine dependence - Physical Exam Results Vital Signs: Vital Signs Temperature 97.5 F L 05/31/16 10:25 Pulse Rate 83 05/31/16 10:25 Respiratory Rate 18 05/31/16 10:25 Blood Pressure 121/71 05/31/16 10:25 O2 Sat by Pulse Oximetry (%) Pertinent Admission Physical Exam Findings: withdrawal symptom - Treatment Hospital Course: Detox Protocol Followed, Detoxed Safely, Responded well, Discharged Condition Good Patient has Accepted a Rehab Referral to: declined - Medication Discharge Medications: Ambulatory Orders NK [No Known Home Medication] 03/30/15 - Diagnosis (1) Cocaine dependence Current Visit: Yes Status: Chronic Qualifiers: Substance use status: uncomplicated Qualified Code(s): F14.20 - Cocaine dependence, uncomplicated (2) Nicotine dependence Current Visit: Yes Status: Chronic Qualifiers: Nicotine product type: cigarettes Substance use status: uncomplicated Qualified Code(s): F17.210 - Nicotine dependence, cigarettes, uncomplicated (3) Opioid dependence with withdrawal Current Visit: Yes Status: Chronic (4) Weight decreased Current Visit: Yes Status: Chronic - AMA Did Patient Leave Against Medical Advice: No
[2016-06-01] MEDS ORDERED: METHADONE HCL 5 MG TABLET (FOR DETOX USE ONLY) PO ONE (06:00)
== END 2016-05-31 12:14 | disposition home or self-care (01) | DRG 773 ==
LOC: YASAS 13:28 → Y6N 18:15
PROVIDERS: ADMIT Internal Medicine; ATTEND Internal Medicine
PROC: HZ2ZZZZ Detoxification Services for Substance Abuse Treatment (ICD-10-PCS; principal; 2016-05-31)
DX: F11.23 Opioid dependence with withdrawal (principal); F14.20 Cocaine dependence, uncomplicated; F17.210 Nicotine dependence, cigarettes, uncomplicated; R63.4 Abnormal weight loss; Z68.26 Body mass index [BMI] 26.0-26.9, adult
CPT/HCPCS: 36415; 80053; 81003; 85027; 86593; 87389; 93005; 93010

== ENCOUNTER 2016-06-28 15:21 | Inpatient (IN) | payer OTHER ==
[2016-06-28 16:18] VITALS: BMI 24.2
--- NOTE | 2016-06-28 16:46 | HP ---
COWS - Scale Resting Pulse: 0= [place] 80 or Below Sweatin= Chills/Flushing Restless Observation: 1= Difficult to Sit Still Pupil Size: 0= Normal to Room Light Bone or Joint Aches: 2= Severe Diffuse Aches Runny Nose/ Eye Tearin= Nasal Congestion GI Upset > 30mins: 1= Stomach Cramp Tremor Observation: 2= Slight Tremor Visible Yawning Observation: 1= 1-2x During Session Anxiety or Irritability: 2=Irritable/Anxious Goose Flesh Skin: 3=Piloerection COWS Score: 14 Admission ROS S - HPI Chief Complaint: WITHDRAWAL SX Allergies/Adverse Reactions: Allergies Allergy/AdvReac Type Severity Reaction Status Date / Time No Known Allergies Allergy Verified 06/28/16 16:43 History of Present Illness: 31 YEARS OLD MALE WITH LONG HISTORY OF OPIATE NICOTINE DEPENDENCE, HAS COPD, WEIGHT LOSS DENIES MENTAL ILLNESS IS ADMITTED TO DETOX Exam Limitations: No Limitations - Ebola screening Have you traveled outside of the country in the last 21 days: No Have you had contact with anyone from an Ebola affected area: No Have you been sick,other than usual withdrawal symptoms: No Do you have a fever: No - Review of Systems Constitutional: Chills, Loss of Appetite, Changes in sleep, Unintentional Wgt. Loss, Unexplained wgt Loss EENT: reports: No Symptoms Reported Respiratory: reports: SOB with Exertion, Productive cough (GREENISH) Cardiac: reports: No Symptoms Reported GI: reports: Poor Appetite, Poor Fluid Intake, Abdominal cramping : reports: No Symptoms Reported Musculoskeletal: reports: Back Pain, Joint Pain, Muscle Pain, Neck Pain Integumentary: reports: Change in Color (BOTH INNER ELBOWS) Neuro: reports: Tremors Endocrine: reports: No Symptoms Reported Hematology: reports: No Symptoms Reported Psychiatric: reports: Judgement Intact, Orientated x3 Other Systems: Reviewed and Negative Patient History - Patient Medical History Hx Anemia: No Hx Asthma: No Hx Chronic Obstructive Pulmonary Disease (COPD): Yes Hx Cancer: No Hx Cardiac Disorders: No Hx Congestive Heart Failure: No Hx Hypertension: No Hx Hypercholesterolemia: No Hx Pacemaker: No HX Cerebrovascular Accident: No Hx Seizures: No Hx Dementia: No Hx Diabetes: No Hx Gastrointestinal Disorders: No Hx Liver Disease: No Hx Genitourinary Disorders: No Hx Sexually Transmitted Disorders: No Hx Renal Disease (ESRD): No Hx Thyroid Disease: No Hx Human Immunodeficiency Virus (HIV): No (negative ) Hx Hepatitis C: No (negative) Hx Depression: No Hx Suicide Attempt: No (denies) Hx Bipolar Disorder: No Hx Schizophrenia: No - Patient Surgical History Past Surgical History: Yes Hx Neurologic Surgery: No Hx Cataract Extraction: No Hx Cardiac Surgery: No Hx Lung Surgery: No Hx Breast Surgery: No Hx Breast Biopsy: No Hx Abdominal Surgery: No Hx Appendectomy: No Hx Cholecystectomy: No Hx Genitourinary Surgery: No Hx Orthopedic Surgery: Yes (RT. THUMB FOR CHIP BONE in 2004 in [facility]) Anesthesia Reaction: No - PPD History Previous Implant?: Yes Documented Results: Negative w/o proof Implanted On Prior [facility] Admission?: Yes Date: 04/11/16 Results: 0 mm PPD to be Administered?: No - Smoking Cessation Smoking history: Current every day smoker Have you smoked in the past 12 months: Yes Aproximately how many cigarettes per day: 20 Cigars Per Day: 0 Hx Chewing Tobacco Use: No Initiated information on smoking cessation: Yes 'Breaking Loose' booklet given: 06/28/16 - Substance & Tx. History Hx Alcohol Use: No Hx Substance Use: Yes Substance Use Type: Opiates Hx Substance Use Treatment: Yes - Substances Abused Heroin Route: Injection Frequency: Daily Amount used: 10 BAGS Age of first use: 25 Date of Last Use: 06/28/16 Xanax Route: Smoking Frequency: 1-2 times per week Amount used: 2 mg. Age of first use: 30 Date of Last Use: 06/26/16 Family Disease History - Family Disease History Family Disease History: Heart Disease: Father, Mother (, HEART ATTACK) Admission Physical Exam S - Vital Signs Vital Signs: Vital Signs - 24 hr 06/28/16 16:15 Temperature 96.4 F L Pulse Rate 69 Respiratory 18 Rate Blood Pressure 109/59 - Physical General Appearance: Yes: Appropriately Dressed, Mild Distress, Thin, Tremorous, Irritable, Sweating, Anxious HEENTM: Yes: Hearing grossly Normal, Normal ENT Inspection, Normocephalic, Normal Voice Respiratory: Yes: Lungs Clear, Normal Breath Sounds, No Accessory Muscle Use, Hyperresonant, Inspiration Neck: Yes: Supple, Trachea in good position Breast: Yes: Breasts Symetrical Cardiology: Yes: Regular Rhythm, Regular Rate, S1, S2 Abdominal: Yes: Non Tender, Soft Genitourinary: Yes: Within Normal Limits Back: Yes: Normal Inspection Musculoskeletal: Yes: full range of Motion, Gait Steady, Back pain Extremities: Yes: Normal Range of Motion, Non-Tender, Tremors, Other (ARMS OPIATE IV) Neurological: Yes: Fully Oriented, Alert, Motor Strength 5/5, Normal Mood/Affect , Normal Response Integumentary: Yes: Warm, Track [place] Lymphatic: Yes: Within Normal Limits - Diagnostic (1) Nicotine dependence Current Visit: Yes Status: Acute Qualifiers: Nicotine product type: cigarettes Substance use status: in withdrawal Qualified Code(s): F17.213 - Nicotine dependence, cigarettes, with withdrawal (2) Opioid dependence with withdrawal Current Visit: Yes Status: Acute (3) Weight decreased Current Visit: Yes Status: Acute (4) COPD (chronic obstructive pulmonary disease) Current Visit: Yes Status: Acute Qualifiers: COPD type: emphysema Emphysema type: unilateral Qualified Code(s ): J43.0 - Unilateral pulmonary emphysema [MacLeod's syndrome] Cleared for Admission [facility] - Detox or Rehab [facility] Level of Care: Medically Managed Detox Regimen/Protocol: Methadone [facility] Breath Alcohol Content Breath Alcohol Content: 0 Vital Signs - Vital Signs Vital Signs Refused: No Temperature: 96.4 F Temperature Source: Oral Pulse Rate: 69 Respiratory Rate: 18 Blood Pressure: 109/59 BP Location: Left Arm Blood Pressure Position: Sitting - Height Height: 5 ft 9 in - Weight Weight: 164 lb Weight Measurement Method: Standing Scale Body Mass Index (BMI): 24.2 - Bowel Function Bowel Movement: Yes Urine Drug Screen - Control Is Test Valid: Yes - Results Drug Screen Negative: No Urine Drug Screen Results: OPI-Opiates, OXY-Oxycodone
[2016-06-28] MEDS ORDERED: ACETAMINOPHEN 325 MG TABLET (FP) PO PRN (16:52)
[2016-06-28] MEDS ORDERED: MAGNESIUM HYDROX 2400MG/30ML ORAL SUSPENSION 30 ML CUP PO PRN (16:52)
[2016-06-28] MEDS ORDERED: LOPERAMIDE HCL 2 MG CAPSULE PO PRN (16:52)
[2016-06-28] MEDS ORDERED: MENTHOL/PHENOL 1 EACH UD MM PRN (16:52)
[2016-06-28] MEDS ORDERED: MAG HYDROX/AL HYDROX/SIMETH 30 ML UNIT-DOSE CUP PO PRN (16:52)
[2016-06-28] MEDS ORDERED: MAGNESIUM CITRATE 300 ML BOTTLE PO PRN (16:52)
[2016-06-28] MEDS ORDERED: NICOTINE POLACRILEX 4 MG GUM BC PRN (16:52)
[2016-06-28] MEDS ORDERED: IBUPROFEN 400 MG TABLET (FP) PO PRN (16:52)
[2016-06-28] MEDS ORDERED: P-EPHED 60MG/TRIPROLIDI 2.5MG TABLET PO PRN (16:52)
[2016-06-28] MEDS ORDERED: guaiFENesin/D-METHORPHAN HB 10 ML UNIT-DOSE CUPS PO PRN (16:52)
[2016-06-28] MEDS ORDERED: ALBUTEROL SO4 6.7 GM HFA INHALER IH PRN (16:54)
[2016-06-28] MEDS ORDERED: METHADONE HCL 10 MG TABLET (FOR DETOX USE ONLY) PO ONE ×2 (18:45→23:00)
[2016-06-28] MEDS: diazePAM 5 MG TABLET PO PRN (19:19)
[2016-06-28] MEDS: THIAMINE HCL 100 MG TABLET (FP) PO SCH (22:28)
[2016-06-28] MEDS: diphenhydrAMINE HCL 50 MG CAPSULE PO PRN (22:28)
[2016-06-28] MEDS: BUDESONIDE/FORMETEROL FUMARATE 80/4.5 mcg INHALER IH SCH (22:29)
[2016-06-28 22:56] LABS: URINE APPEARANCE CLEAR; URINE BILIRUBIN NEGATIVE (NEGATIVE); URINE BLOOD NEGATIVE (NEGATIVE); URINE COLOR YELLOW; URINE GLUCOSE (UA) NEGATIVE (NEGATIVE); URINE KETONE NEGATIVE (NEGATIVE); URINE LEUK ESTERASE NEGATIVE (NEGATIVE); URINE NITRITE NEGATIVE (NEGATIVE); URINE PROTEIN NEGATIVE (NEGATIVE); URINE UROBILINOGEN NEGATIVE E.U./dl (0.2-1.0)
[2016-06-29] MEDS: diazePAM 5 MG TABLET PO PRN ×4 (00:52→19:45)
[2016-06-29] MEDS ORDERED: TRIMETHOBENZAMIDE HCL 200MG/2ML INJ IM PRN (06:18)
[2016-06-29 09:55] LABS: MCH 28.8 pg (25.7-33.7); MCHC 32.8 g/dl (32.0-35.9); MEAN CELL VOLUME 87.9 fl (80-96); MEAN PLT VOLUME 9.2 fl (7.5-11.1); PLATELET COUNT 205 K/MM3 (134-434); RDW 14.5 % (11.9-15.9); WHITE BLOOD COUNT 13.1 K/mm3 (4.0-10.0)
[2016-06-29] MEDS ORDERED: METHADONE HCL 10 MG TABLET (FOR DETOX USE ONLY) PO ONE (10:00)
[2016-06-29 10:03] LABS: ALBUMIN 4.1 g/dl (3.4-5.0); ALK PHOS 66 U/L (45-117); ANION GAP 11 (8-16); BILIRUBIN,TOTAL 0.5 mg/dL (0.2-1.0); CALCIUM 9.2 mg/dL (8.5-10.1); CO2 27 mmol/L (21-32); CREATININE 0.8 mg/dL (0.7-1.3); GLUCOSE,RANDOM 93 mg/dL (74-106); SGOT/AST 15 U/L (15-37); SGPT/ALT 20 U/L (12-78); TOT PROT 7.1 g/dl (6.4-8.2)
[2016-06-29] MEDS: BUDESONIDE/FORMETEROL FUMARATE 80/4.5 mcg INHALER IH SCH ×2 (10:25→22:42)
[2016-06-29] MEDS: NICOTINE 21 MG/24 HOURS TOPICAL PATCH TD SCH (10:25)
[2016-06-29] MEDS: PRENATAL VITAMINS W/ FOLIC ACID TABLET (FP) PO SCH (10:25)
--- NOTE | 2016-06-29 12:52 | EKG ---
Test Reason : Blood Pressure : / mmHG Vent. Rate : 064 BPM Atrial Rate : 064 BPM P-R Int : 150 ms QRS Dur : 096 ms QT Int : 398 ms P-R-T Axes : 053 021 037 degrees QTc Int : 410 ms NORMAL SINUS RHYTHM NORMAL ECG WHEN COMPARED WITH ECG OF 27-MAY-2016 19:31, NO SIGNIFICANT CHANGE WAS FOUND Confirmed by KLAUS GARCIA MD ([id number]) on 06/29/2016 12:52:01 PM Referred By: Quinten Lopez Confirmed By:KLAUS GARCIA MD
--- NOTE | 2016-06-29 14:48 | PN ---
BHS COWS - Scale Resting Pulse: 1= [place] 81-100 Sweatin=Flushed/Facial Moisture Restless Observation: 1= Difficult to Sit Still Pupil Size: 0= Normal to Room Light Bone or Joint Aches: 2= Severe Diffuse Aches Runny Nose/ Eye Tearin= Runny Nose/Eyes GI Upset > 30mins: 2= Nausea/Diarrhea Tremor Observation of Outstretched Hands: 2= Slight Tremor Visible Yawning Observation: 1= 1-2x During Session Anxiety or Irritability: 2=Irritable/Anxious Goose Flesh Skin: 0=Smooth Skin COWS Score: 15 BHS Progress Note (SOAP) Subjective: Anxiety,tremors,sweating,interrupted sleep,restless Objective: 06/29/16 14:44 Last Vital Signs Temp Pulse Resp BP Pulse Ox 97.2 F L 94 H 20 148/82 06/29/16 09:47 06/29/16 09:47 06/29/16 09:47 06/29/16 09:47 Laboratory Tests 06/28/16 06/29/16 06/29/16 22:48 06:30 07:00 WBC 13.1 H D RBC 5.02 Hgb 14.5 Hct 44.1 MCV 87.9 MCHC 32.8 RDW 14.5 Plt Count 205 MPV 9.2 Sodium 139 Potassium 3.8 Chloride 101 Carbon Dioxide 27 Anion Gap 11 BUN 16 Creatinine 0.8 Creat Clearance w eGFR > 60 Random Glucose 93 Calcium 9.2 Total Bilirubin 0.5 D AST 15 ALT 20 Alkaline Phosphatase 66 Total Protein 7.1 Albumin 4.1 Urine Color Yellow Urine Appearance Clear Urine pH 5.0 Ur Specific [place] 1.026 Urine Protein Negative Urine Glucose (UA) Negative Urine Ketones Negative Urine Blood Negative Urine Nitrite Negative Urine Bilirubin Negative Urine Urobilinogen Negative Ur Leukocyte Esterase Negative RPR Titer 06/29/16 07:00 WBC RBC Hgb Hct MCV MCHC RDW Plt Count MPV Sodium Potassium Chloride Carbon Dioxide Anion Gap BUN Creatinine Creat Clearance w eGFR Random Glucose Calcium Total Bilirubin AST ALT Alkaline Phosphatase Total Protein Albumin Urine Color Urine Appearance Urine pH Ur Specific [place] Urine Protein Urine Glucose (UA) Urine Ketones Urine Blood Urine Nitrite Urine Bilirubin Urine Urobilinogen Ur Leukocyte Esterase RPR Titer Nonreactive labs noted Assessment: 06/29/16 14:47 Withdrawal sx. Plan: Continue detox
[2016-06-29 14:50] LABS: HIV 1 & 2 AB NEGATIVE; HIV 1 AGp24 NEGATIVE
[2016-06-29] MEDS: THIAMINE HCL 100 MG TABLET (FP) PO SCH (22:42)
[2016-06-30] MEDS: diazePAM 5 MG TABLET PO PRN ×4 (06:49→22:38)
[2016-06-30] MEDS ORDERED: METHADONE HCL 5 MG TABLET (FOR DETOX USE ONLY) PO ONE (10:00)
[2016-06-30] MEDS: BUDESONIDE/FORMETEROL FUMARATE 80/4.5 mcg INHALER IH SCH ×2 (10:32→22:38)
[2016-06-30] MEDS: PRENATAL VITAMINS W/ FOLIC ACID TABLET (FP) PO SCH (10:32)
[2016-06-30] MEDS: NICOTINE 21 MG/24 HOURS TOPICAL PATCH TD SCH (10:33)
--- NOTE | 2016-06-30 10:41 | PN ---
BHS COWS - Scale Resting Pulse: 2= [place] 101-120 Sweatin=Flushed/Facial Moisture Restless Observation: 1= Difficult to Sit Still Pupil Size: 0= Normal to Room Light Bone or Joint Aches: 2= Severe Diffuse Aches Runny Nose/ Eye Tearin= Runny Nose/Eyes GI Upset > 30mins: 2= Nausea/Diarrhea Tremor Observation of Outstretched Hands: 2= Slight Tremor Visible Yawning Observation: 1= 1-2x During Session Anxiety or Irritability: 2=Irritable/Anxious Goose Flesh Skin: 0=Smooth Skin COWS Score: 16 BHS Progress Note (SOAP) Subjective: Anxiety,tremors,interrupted sleep,sweating,restless, muscle aches Objective: 06/30/16 10:40 Last Vital Signs Temp Pulse Resp BP Pulse Ox 96.9 F L 103 H 16 121/78 06/30/16 09:38 06/30/16 09:38 06/30/16 09:38 06/30/16 09:38 Laboratory Tests 06/28/16 06/28/16 06/29/16 07:00 22:48 06:30 WBC 13.1 H D RBC 5.02 Hgb 14.5 Hct 44.1 MCV 87.9 MCHC 32.8 RDW 14.5 Plt Count 205 MPV 9.2 Sodium Potassium Chloride Carbon Dioxide Anion Gap BUN Creatinine Creat Clearance w eGFR Random Glucose Calcium Total Bilirubin AST ALT Alkaline Phosphatase Total Protein Albumin Urine Color Yellow Urine Appearance Clear Urine pH 5.0 Ur Specific [place] 1.026 Urine Protein Negative Urine Glucose (UA) Negative Urine Ketones Negative Urine Blood Negative Urine Nitrite Negative Urine Bilirubin Negative Urine Urobilinogen Negative Ur Leukocyte Esterase Negative RPR Titer Hepatitis C Antibody 0.3 HIV 1&2 Antibody Screen HIV P24 Antigen 06/29/16 06/29/16 06/29/16 07:00 07:00 07:00 WBC RBC Hgb Hct MCV MCHC RDW Plt Count MPV Sodium 139 Potassium 3.8 Chloride 101 Carbon Dioxide 27 Anion Gap 11 BUN 16 Creatinine 0.8 Creat Clearance w eGFR > 60 Random Glucose 93 Calcium 9.2 Total Bilirubin 0.5 D AST 15 ALT 20 Alkaline Phosphatase 66 Total Protein 7.1 Albumin 4.1 Urine Color Urine Appearance Urine pH Ur Specific [place] Urine Protein Urine Glucose (UA) Urine Ketones Urine Blood Urine Nitrite Urine Bilirubin Urine Urobilinogen Ur Leukocyte Esterase RPR Titer Nonreactive Hepatitis C Antibody HIV 1&2 Antibody Screen Negative HIV P24 Antigen Negative labs noted Assessment: 06/30/16 10:40 Withdrawal sx. Plan: Continue detox
[2016-06-30] MEDS: cloNIDine HCL 0.1 MG TABLET PO SCH ×2 (11:57→22:38)
[2016-06-30] MEDS: THIAMINE HCL 100 MG TABLET (FP) PO SCH (22:38)
[2016-06-30] MEDS: diphenhydrAMINE HCL 50 MG CAPSULE PO PRN (22:39)
[2016-07-01] MEDS: diazePAM 5 MG TABLET PO PRN ×2 (08:32→16:39)
[2016-07-01] MEDS ORDERED: METHADONE HCL 5 MG TABLET (FOR DETOX USE ONLY) PO ONE (10:00)
[2016-07-01] MEDS: BUDESONIDE/FORMETEROL FUMARATE 80/4.5 mcg INHALER IH SCH (10:35)
[2016-07-01] MEDS: PRENATAL VITAMINS W/ FOLIC ACID TABLET (FP) PO SCH (10:35)
[2016-07-01] MEDS: cloNIDine HCL 0.1 MG TABLET PO SCH ×2 (10:35→22:43)
[2016-07-01] MEDS: NICOTINE 21 MG/24 HOURS TOPICAL PATCH TD SCH (10:37)
--- NOTE | 2016-07-01 12:19 | PN ---
BHS Progress Note (SOAP) Subjective: ANXIETY,IRRITABILITY,ANGRY,UNABLE TO EXPRESS HIS DISCOMFORTS. BLOCKS COMMUNICATION FLOW DURING ROUNDS.."I DON'T WANNA TALK RIGHT NOW,CAN YOU LEAVE ME ALONE FOR NOW'. Objective: 07/01/16 12:13 Vital Signs Temperature 97.8 F 07/01/16 09:37 Pulse Rate 102 H 07/01/16 09:37 Respiratory Rate 20 07/01/16 09:37 Blood Pressure 116/79 07/01/16 09:37 O2 Sat by Pulse Oximetry (%) Assessment: 07/01/16 12:13 WITHDRAWAL SX Plan: CONTINUE DETOX EXPLAINED TO PATIENT WE ARE ABLE TO SERVE HIM BETTER WHEN HE EXPRESSES HIS DISCOMFORT FOR BETTER DETOX MANAGEMENT. PT AGREED WITH EXPLANATION.
[2016-07-01] MEDS: THIAMINE HCL 100 MG TABLET (FP) PO SCH (22:43)
[2016-07-01] MEDS: diphenhydrAMINE HCL 50 MG CAPSULE PO PRN (22:43)
[2016-07-02] MEDS: BUDESONIDE/FORMETEROL FUMARATE 80/4.5 mcg INHALER IH SCH ×2 (00:01→11:00)
[2016-07-02 09:44] VITALS: BP 115/74; PULSE 80; TEMP 96
[2016-07-02] MEDS ORDERED: METHADONE HCL 10 MG TABLET (FOR DETOX USE ONLY) PO ONE (10:00)
--- NOTE | 2016-07-02 10:23 | DS ---
[facility] Detox Discharge Summary Admission Date: 06/28/16 Discharge Date: 07/02/16 - History Present History: Cocaine Dependence, Opioid Dependence, Sedative Dependence Pertinent Past History: Smoker - Physical Exam Results Vital Signs: Vital Signs Temperature 96.0 F L 07/02/16 09:43 Pulse Rate 80 07/02/16 09:43 Respiratory Rate 18 07/02/16 09:43 Blood Pressure 115/74 07/02/16 09:43 O2 Sat by Pulse Oximetry (%) Laboratory Tests 06/28/16 06/28/16 06/29/16 07:00 22:48 06:30 WBC 13.1 H D RBC 5.02 Hgb 14.5 Hct 44.1 MCV 87.9 MCHC 32.8 RDW 14.5 Plt Count 205 MPV 9.2 Sodium Potassium Chloride Carbon Dioxide Anion Gap BUN Creatinine Creat Clearance w eGFR Random Glucose Calcium Total Bilirubin AST ALT Alkaline Phosphatase Total Protein Albumin Urine Color Yellow Urine Appearance Clear Urine pH 5.0 Ur Specific [place] 1.026 Urine Protein Negative Urine Glucose (UA) Negative Urine Ketones Negative Urine Blood Negative Urine Nitrite Negative Urine Bilirubin Negative Urine Urobilinogen Negative Ur Leukocyte Esterase Negative RPR Titer Hepatitis C Antibody 0.3 HIV 1&2 Antibody Screen HIV P24 Antigen 06/29/16 06/29/16 06/29/16 07:00 07:00 07:00 WBC RBC Hgb Hct MCV MCHC RDW Plt Count MPV Sodium 139 Potassium 3.8 Chloride 101 Carbon Dioxide 27 Anion Gap 11 BUN 16 Creatinine 0.8 Creat Clearance w eGFR > 60 Random Glucose 93 Calcium 9.2 Total Bilirubin 0.5 D AST 15 ALT 20 Alkaline Phosphatase 66 Total Protein 7.1 Albumin 4.1 Urine Color Urine Appearance Urine pH Ur Specific [place] Urine Protein Urine Glucose (UA) Urine Ketones Urine Blood Urine Nitrite Urine Bilirubin Urine Urobilinogen Ur Leukocyte Esterase RPR Titer Nonreactive Hepatitis C Antibody HIV 1&2 Antibody Screen Negative HIV P24 Antigen Negative labs noted - Medication Discharge Medications: Ambulatory Orders NK [No Known Home Medication] 03/30/15 - Diagnosis (1) Nicotine dependence Current Visit: Yes Status: Acute Qualifiers: Nicotine product type: cigarettes Substance use status: in withdrawal Qualified Code(s): F17.213 - Nicotine dependence, cigarettes, with withdrawal (2) Opioid dependence with withdrawal Current Visit: Yes Status: Acute (3) Cocaine dependence Current Visit: No Status: Chronic Qualifiers: Substance use status: uncomplicated Qualified Code(s): F14.20 - Cocaine dependence, uncomplicated - AMA Did Patient Leave Against Medical Advice: Yes
[2016-07-02] MEDS: cloNIDine HCL 0.1 MG TABLET PO SCH (11:00)
[2016-07-02] MEDS: PRENATAL VITAMINS W/ FOLIC ACID TABLET (FP) PO SCH (11:00)
[2016-07-02] MEDS: NICOTINE 21 MG/24 HOURS TOPICAL PATCH TD SCH (11:00)
[2016-07-03] MEDS ORDERED: METHADONE HCL 5 MG TABLET (FOR DETOX USE ONLY) PO ONE (06:00)
== END 2016-07-02 09:00 | disposition left against medical advice (07) | DRG 770 ==
LOC: YASAS 15:21 → Y3N 18:17
PROVIDERS: ADMIT Internal Medicine; ATTEND Internal Medicine
PROC: HZ2ZZZZ Detoxification Services for Substance Abuse Treatment (ICD-10-PCS; principal; 2016-07-02)
DX: F11.23 Opioid dependence with withdrawal (principal); F14.20 Cocaine dependence, uncomplicated; F17.213 Nicotine dependence, cigarettes, with withdrawal; J43.0 Unilateral pulmonary emphysema [MacLeod's syndrome]; R63.4 Abnormal weight loss; Z68.24 Body mass index [BMI] 24.0-24.9, adult
CPT/HCPCS: 36415; 80053; 81003; 85027; 86593; 87389; 93005; 93010

== ENCOUNTER 2016-08-16 21:04 | Inpatient (IN) | payer OTHER ==
[2016-08-16 21:44] VITALS: BMI 23.1
--- NOTE | 2016-08-16 22:18 | HP ---
COWS - Scale Resting Pulse: 0= [place] 80 or Below Sweatin= Chills/Flushing Restless Observation: 3= Extraneous Movement Pupil Size: 1= Pupils >than Normal Bone or Joint Aches: 1= Mild Discomfort Runny Nose/ Eye Tearin= Constantly Teary/Runny GI Upset > 30mins: 1= Stomach Cramp Tremor Observation: 2= Slight Tremor Visible Yawning Observation: 1= 1-2x During Session Anxiety or Irritability: 2=Irritable/Anxious Goose Flesh Skin: 0=Smooth Skin COWS Score: 16 Admission ROS S - [facility] Chief Complaint: WITHDRAWAL SYMPTOMS Allergies/Adverse Reactions: Allergies Allergy/AdvReac Type Severity Reaction Status Date / Time No Known Allergies Allergy Verified 08/16/16 22:09 History of Present Illness: 31 Y.O. MALE WITH A 11 YEAR HISTORY OF OPIATE DEPENDENCY IS SEEKING DETOX. HE WAS LAST HERE IN June, BUT LEFT AMA. HE REPORTS THAT HIS ONLY SIGNIFICANT PERIOD OF SOBRIETY WAS WHILE HE WAS INCARCERATED. Exam Limitations: No Limitations - Ebola screening Have you traveled outside of the country in the last 21 days: No (N) Have you had contact with anyone from an Ebola affected area: No Have you been sick,other than usual withdrawal symptoms: No Do you have a fever: No - Review of Systems Constitutional: Chills, Loss of Appetite, Malaise, Changes in sleep, Unintentional Wgt. Loss EENT: reports: Blurred Vision, Tearing, Nose Congestion Respiratory: reports: Wheezing Cardiac: reports: No Symptoms Reported GI: reports: Poor Appetite : reports: Other (HESITANCY) Musculoskeletal: reports: Muscle Weakness Integumentary: reports: Other (TRACK CURRY) Neuro: reports: Tremors Endocrine: reports: No Symptoms Reported Hematology: reports: No Symptoms Reported Psychiatric: reports: Anxious Other Systems: Reviewed and Negative Patient History - Patient Medical History Hx Anemia: No Hx Asthma: No Hx Chronic Obstructive Pulmonary Disease (COPD): No Hx Cancer: No Hx Cardiac Disorders: No Hx Congestive Heart Failure: No Hx Hypertension: No Hx Hypercholesterolemia: No Hx Pacemaker: No HX Cerebrovascular Accident: No Hx Seizures: No Hx Dementia: No Hx Diabetes: No Hx Gastrointestinal Disorders: No Hx Liver Disease: No Hx Genitourinary Disorders: No Hx Sexually Transmitted Disorders: No Hx Renal Disease (ESRD): No Hx Thyroid Disease: No Hx Human Immunodeficiency Virus (HIV): No (negative ) Hx Hepatitis C: No (negative) Hx Depression: No Hx Suicide Attempt: No (denies) Hx Bipolar Disorder: No Hx Schizophrenia: No - Patient Surgical History Past Surgical History: Yes Hx Neurologic Surgery: No Hx Cataract Extraction: No Hx Cardiac Surgery: No Hx Lung Surgery: No Hx Breast Surgery: No Hx Breast Biopsy: No Hx Abdominal Surgery: No Hx Appendectomy: No Hx Cholecystectomy: No Hx Genitourinary Surgery: No Hx Section: No Hx Orthopedic Surgery: Yes (RT. THUMB FOR CHIP BONE in 2004 in [facility]) Anesthesia Reaction: No - PPD History Previous Implant?: Yes Documented Results: Negative w/proof Implanted On Prior [facility] Admission?: Yes Date: 04/11/16 Results: 0 mm PPD to be Administered?: No - Reproductive History Patient is a Female of Child Bearing Age (11 -55 yrs old): No - Smoking Cessation Smoking history: Current every day smoker Have you smoked in the past 12 months: Yes Aproximately how many cigarettes per day: 20 Cigars Per Day: 0 Hx Chewing Tobacco Use: No Initiated information on smoking cessation: Yes 'Breaking Loose' booklet given: 08/16/16 - Substance & Tx. History Hx Alcohol Use: Yes Hx Substance Use: Yes Substance Use Type: Heroin Hx Substance Use Treatment: Yes (DETOX AND REHAB) - Substances Abused Heroin Route: Injection Frequency: Daily Amount used: 10 bags Age of first use: 25 Date of Last Use: 08/16/16 Family Disease History - Family Disease History Family Disease History: Heart Disease: Father, Mother (, HEART ATTACK) Admission Physical Exam S - Vital Signs Vital Signs: Vital Signs - 24 hr 08/16/16 21:41 Temperature 96.9 F L Pulse Rate 78 Respiratory 20 Rate Blood Pressure 134/85 - Physical General Appearance: Yes: Thin, Tremorous, Irritable, Sweating, Anxious HEENTM: Yes: Normocephalic, Normal Voice Respiratory: Yes: Chest Non-Tender, Lungs Clear, Normal Breath Sounds, No Respiratory Distress, No Accessory Muscle Use Neck: Yes: No masses,lesions,Nodules, Trachea in good position Breast: Yes: Breast Exam Deferred Cardiology: Yes: Regular Rhythm, Regular Rate Abdominal: Yes: Normal Bowel Sounds, Non Tender, Flat Genitourinary: Yes: Hesitency Back: Yes: Normal Inspection Musculoskeletal: Yes: full range of Motion, Gait Steady Extremities: Yes: Non-Tender Neurological: Yes: Alert, Normal Mood/Affect, Normal Response Integumentary: Yes: Track [place] Lymphatic: Yes: Within Normal Limits - Diagnostic (1) Nicotine dependence Current Visit: Yes Status: Chronic Qualifiers: Nicotine product type: cigarettes Substance use status: in withdrawal Qualified Code(s): F17.213 - Nicotine dependence, cigarettes, with withdrawal (2) Opioid dependence with withdrawal Current Visit: Yes Status: Chronic (3) Weight decreased Current Visit: Yes Status: Acute Cleared for Admission [facility] - Detox or Rehab [facility] Level of Care: Medically Managed Detox Regimen/Protocol: Methadone [facility] Breath Alcohol Content Breath Alcohol Content: 0 Urine Drug Screen - Results Drug Screen Negative: No Urine Drug Screen Results: OPI-Opiates, OXY-Oxycodone
[2016-08-16] MEDS ORDERED: P-EPHED 60MG/TRIPROLIDI 2.5MG TABLET PO PRN (22:28)
[2016-08-16] MEDS ORDERED: LOPERAMIDE HCL 2 MG CAPSULE PO PRN (22:28)
[2016-08-16] MEDS ORDERED: METHADONE HCL 10 MG TABLET (FOR DETOX USE ONLY) PO ONE ×2 (22:28→23:00)
[2016-08-16] MEDS ORDERED: IBUPROFEN 400 MG TABLET (FP) PO PRN (22:28)
[2016-08-16] MEDS ORDERED: ACETAMINOPHEN 325 MG TABLET (FP) PO PRN (22:28)
[2016-08-16] MEDS ORDERED: guaiFENesin/D-METHORPHAN HB 10 ML UNIT-DOSE CUPS PO PRN (22:28)
[2016-08-16] MEDS ORDERED: MAG HYDROX/AL HYDROX/SIMETH 30 ML UNIT-DOSE CUP PO PRN (22:28)
[2016-08-16] MEDS ORDERED: MAGNESIUM CITRATE 300 ML BOTTLE PO PRN (22:28)
[2016-08-16] MEDS ORDERED: NICOTINE POLACRILEX 2 MG GUM BC PRN (22:28)
[2016-08-16] MEDS ORDERED: MENTHOL/PHENOL 1 EACH UD MM PRN (22:28)
[2016-08-16] MEDS ORDERED: MAGNESIUM HYDROX 2400MG/30ML ORAL SUSPENSION 30 ML CUP PO PRN (22:28)
[2016-08-16] MEDS ORDERED: hydrOXYzine PAMOATE 50 MG CAPSULE (FP) PO PRN (22:28)
[2016-08-16] MEDS: diazePAM 5 MG TABLET PO PRN (23:20)
[2016-08-16] MEDS: diphenhydrAMINE HCL 50 MG CAPSULE PO PRN (23:21)
[2016-08-17] MEDS: diazePAM 5 MG TABLET PO PRN ×4 (06:03→19:08)
--- NOTE | 2016-08-17 08:24 | EKG ---
Test Reason : Blood Pressure : / mmHG Vent. Rate : 057 BPM Atrial Rate : 057 BPM P-R Int : 132 ms QRS Dur : 096 ms QT Int : 408 ms P-R-T Axes : 049 035 056 degrees QTc Int : 397 ms SINUS BRADYCARDIA OTHERWISE NORMAL ECG WHEN COMPARED WITH ECG OF 28-JUN-2016 19:08, NO SIGNIFICANT CHANGE WAS FOUND Confirmed by STEFFANY BRASWELL MD ([id number]) on 08/17/2016 8:24:03 AM Referred By: Confirmed By:STEFFANY BRASWELL MD
[2016-08-17] MEDS ORDERED: METHADONE HCL 10 MG TABLET (FOR DETOX USE ONLY) PO ONE (10:00)
[2016-08-17] MEDS: PRENATAL VITAMINS W/ FOLIC ACID TABLET (FP) PO SCH (10:30)
[2016-08-17] MEDS: NICOTINE 21 MG/24 HOURS TOPICAL PATCH TD SCH (10:30)
[2016-08-17 10:40] LABS: ALBUMIN 3.7 g/dl (3.4-5.0); ALK PHOS 58 U/L (45-117); ANION GAP 10 (8-16); BILIRUBIN,TOTAL 0.3 mg/dL (0.2-1.0); CO2 27 mmol/L (21-32); COCKROFT - GAULT 135.99; CREATININE 0.8 mg/dL (0.7-1.3); GLUCOSE,RANDOM 89 mg/dL (74-106); SGOT/AST 19 U/L (15-37); SGPT/ALT 24 U/L (12-78); TOT PROT 6.6 g/dl (6.4-8.2)
[2016-08-17 10:43] LABS: MCH 28.3 pg (25.7-33.7); MCHC 32.6 g/dl (32.0-35.9); MEAN CELL VOLUME 86.8 fl (80-96); PLATELET COUNT 209 K/MM3 (134-434); RDW 13.9 % (11.9-15.9); WHITE BLOOD COUNT 6.6 K/mm3 (4.0-10.0)
[2016-08-17 12:55] LABS: HIV 1 & 2 AB NEGATIVE; HIV 1 AGp24 NEGATIVE
--- NOTE | 2016-08-17 13:15 | PN ---
S COWS - Scale Resting Pulse: 0= [place] 80 or Below Sweatin= No chills or Flushing Restless Observation: 1= Difficult to Sit Still Pupil Size: 0= Normal to Room Light Bone or Joint Aches: 2= Severe Diffuse Aches Runny Nose/ Eye Tearin= Nasal Congestion GI Upset > 30mins: 2= Nausea/Diarrhea Tremor Observation of Outstretched Hands: 2= Slight Tremor Visible Yawning Observation: 1= 1-2x During Session Anxiety or Irritability: 2=Irritable/Anxious Goose Flesh Skin: 3=Piloerection COWS Score: 14 [facility] Progress Note (SOAP) Subjective: Tremors, Fatigue, Body aches, Nausea. Objective: PT. A & O X 3. 08/17/16 13:12 Vital Signs Temperature 96.5 F L 08/17/16 09:50 Pulse Rate 80 08/17/16 09:50 Respiratory Rate 20 08/17/16 09:50 Blood Pressure 121/77 08/17/16 09:50 O2 Sat by Pulse Oximetry (%) Laboratory Last Values WBC 6.6 K/mm3 (4.0-10.0) D 08/17/16 07:00 RBC 4.86 M/mm3 (4.00-5.60) 08/17/16 07:00 Hgb 13.7 GM/dL (11.7-16.9) 08/17/16 07:00 Hct 42.2 % (35.4-49) 08/17/16 07:00 MCV 86.8 fl (80-96) 08/17/16 07:00 MCHC 32.6 g/dl (32.0-35.9) 08/17/16 07:00 RDW 13.9 % (11.9-15.9) 08/17/16 07:00 Plt Count 209 K/MM3 (134-434) 08/17/16 07:00 MPV 9.0 fl (7.5-11.1) 08/17/16 07:00 Sodium 142 mmol/L (136-145) 08/17/16 07:00 Potassium 4.1 mmol/L (3.5-5.1) 08/17/16 07:00 Chloride 105 mmol/L (98-107) 08/17/16 07:00 Carbon Dioxide 27 mmol/L (21-32) 08/17/16 07:00 Anion Gap 10 (8-16) 08/17/16 07:00 BUN 13 mg/dL (7-18) 08/17/16 07:00 Creatinine 0.8 mg/dL (0.7-1.3) 08/17/16 07:00 Creat Clearance w eGFR > 60 (>60) 08/17/16 07:00 Random Glucose 89 mg/dL (74-106) 08/17/16 07:00 Calcium 9.0 mg/dL (8.5-10.1) 08/17/16 07:00 Total Bilirubin 0.3 mg/dL (0.2-1.0) D 08/17/16 07:00 AST 19 U/L (15-37) D 08/17/16 07:00 ALT 24 U/L (12-78) 08/17/16 07:00 Alkaline Phosphatase 58 U/L (45-117) 08/17/16 07:00 Total Protein 6.6 g/dl (6.4-8.2) 08/17/16 07:00 Albumin 3.7 g/dl (3.4-5.0) 08/17/16 07:00 HIV 1&2 Antibody Screen Negative 08/17/16 07:00 HIV P24 Antigen Negative 08/17/16 07:00 LABS NOTED. Assessment: 08/17/16 13:13 WITHDRAWAL SYMPTOMS. Plan: CONTINUE DETOX. ADVISED PATIENT TO FOLLOW-UP WITH PHOTOGRAPH RETOUCHER / REHAB MEDICAL PROVIDER AFTER DISCHARGE FROM DETOX [facility] GENERAL MEDICAL ASSESSMENT AND FOR ABNORMAL ADMISSION LAB VALUES.
[2016-08-17] MEDS: THIAMINE HCL 100 MG TABLET (FP) PO SCH (22:43)
[2016-08-18] MEDS: diazePAM 5 MG TABLET PO PRN ×5 (02:55→23:36)
[2016-08-18] MEDS: ONDANSETRON *ODT* 4 MG TABLET SL PRN (08:20)
[2016-08-18] MEDS ORDERED: METHADONE HCL 5 MG TABLET (FOR DETOX USE ONLY) PO ONE (10:00)
[2016-08-18] MEDS: NICOTINE 21 MG/24 HOURS TOPICAL PATCH TD SCH (10:10)
[2016-08-18] MEDS: PRENATAL VITAMINS W/ FOLIC ACID TABLET (FP) PO SCH (10:11)
--- NOTE | 2016-08-18 11:54 | PN ---
[facility] COWS - Scale Resting Pulse: 1= [place] 81-100 Sweatin=Flushed/Facial Moisture Restless Observation: 1= Difficult to Sit Still Pupil Size: 0= Normal to Room Light Bone or Joint Aches: 1= Mild Discomfort Runny Nose/ Eye Tearin= Runny Nose/Eyes GI Upset > 30mins: 2= Nausea/Diarrhea Tremor Observation of Outstretched Hands: 2= Slight Tremor Visible Yawning Observation: 1= 1-2x During Session Anxiety or Irritability: 2=Irritable/Anxious Goose Flesh Skin: 0=Smooth Skin COWS Score: 14 [facility] Progress Note (SOAP) Subjective: Anxiety,nausea,sweating,interrupted sleep,restless,muscle aches Objective: 08/18/16 11:54 Vital Signs - 8 hr 08/18/16 08/18/16 06:32 09:15 Temperature 96.3 F L 98.5 F Pulse Rate 86 89 Respiratory 18 18 Rate Blood Pressure 116/78 125/85 Laboratory Last Values WBC 6.6 K/mm3 (4.0-10.0) D 08/17/16 07:00 RBC 4.86 M/mm3 (4.00-5.60) 08/17/16 07:00 Hgb 13.7 GM/dL (11.7-16.9) 08/17/16 07:00 Hct 42.2 % (35.4-49) 08/17/16 07:00 MCV 86.8 fl (80-96) 08/17/16 07:00 MCHC 32.6 g/dl (32.0-35.9) 08/17/16 07:00 RDW 13.9 % (11.9-15.9) 08/17/16 07:00 Plt Count 209 K/MM3 (134-434) 08/17/16 07:00 MPV 9.0 fl (7.5-11.1) 08/17/16 07:00 Sodium 142 mmol/L (136-145) 08/17/16 07:00 Potassium 4.1 mmol/L (3.5-5.1) 08/17/16 07:00 Chloride 105 mmol/L (98-107) 08/17/16 07:00 Carbon Dioxide 27 mmol/L (21-32) 08/17/16 07:00 Anion Gap 10 (8-16) 08/17/16 07:00 BUN 13 mg/dL (7-18) 08/17/16 07:00 Creatinine 0.8 mg/dL (0.7-1.3) 08/17/16 07:00 Creat Clearance w eGFR > 60 (>60) 08/17/16 07:00 Random Glucose 89 mg/dL (74-106) 08/17/16 07:00 Calcium 9.0 mg/dL (8.5-10.1) 08/17/16 07:00 Total Bilirubin 0.3 mg/dL (0.2-1.0) D 08/17/16 07:00 AST 19 U/L (15-37) D 08/17/16 07:00 ALT 24 U/L (12-78) 08/17/16 07:00 Alkaline Phosphatase 58 U/L (45-117) 08/17/16 07:00 Total Protein 6.6 g/dl (6.4-8.2) 08/17/16 07:00 Albumin 3.7 g/dl (3.4-5.0) 08/17/16 07:00 RPR Titer Nonreactive (NONREACTIVE) 08/17/16 07:00 Hepatitis C Antibody <0.1 s/co ratio (0.0-0.9) 08/16/16 07:00 HIV 1&2 Antibody Screen Negative 08/17/16 07:00 HIV P24 Antigen Negative 08/17/16 07:00 labs noted Assessment: 08/18/16 11:54 withdrawal sx. Plan: Continue detox
[2016-08-18 20:21] LABS: URINE APPEARANCE CLOUDY; URINE BILIRUBIN NEGATIVE (NEGATIVE); URINE BLOOD NEGATIVE (NEGATIVE); URINE COLOR YELLOW; URINE GLUCOSE (UA) NEGATIVE (NEGATIVE); URINE KETONE 1+ (NEGATIVE); URINE LEUK ESTERASE NEGATIVE (NEGATIVE); URINE NITRITE NEGATIVE (NEGATIVE); URINE UROBILINOGEN NEGATIVE E.U./dl (0.2-1.0)
[2016-08-18 21:19] LABS: URINE PROTEIN 1+ (NEGATIVE)
[2016-08-18] MEDS: THIAMINE HCL 100 MG TABLET (FP) PO SCH (22:40)
[2016-08-18 22:47] LABS: URINE BACTERIA RARE /hpf (NONE SEEN); URINE MUCUS MANY; URINE RBC 1 /hpf (0-3); URINE WBC 1 /hpf (3-5); YEAST FEW
[2016-08-18] MEDS: diphenhydrAMINE HCL 50 MG CAPSULE PO PRN (23:36)
[2016-08-19] MEDS ORDERED: METHADONE HCL 5 MG TABLET (FOR DETOX USE ONLY) PO ONE (10:00)
[2016-08-19] MEDS: PRENATAL VITAMINS W/ FOLIC ACID TABLET (FP) PO SCH (10:16)
[2016-08-19] MEDS: ONDANSETRON *ODT* 4 MG TABLET SL PRN (10:16)
[2016-08-19] MEDS: diazePAM 5 MG TABLET PO PRN ×3 (10:17→19:17)
[2016-08-19] MEDS: NICOTINE 21 MG/24 HOURS TOPICAL PATCH TD SCH (10:17)
--- NOTE | 2016-08-19 10:31 | PN ---
[facility] Progress Note (SOAP) Subjective: NAUSEA/VOMITING,SWEATS,IRRITABILITY,INTERMITTENT SLEEP. Objective: 08/19/16 10:30 Vital Signs Temperature 96.0 F L 08/19/16 09:16 Pulse Rate 115 H 08/19/16 09:16 Respiratory Rate 20 08/19/16 09:16 Blood Pressure 119/84 08/19/16 09:16 O2 Sat by Pulse Oximetry (%) Assessment: 08/19/16 10:30 WITHDRAWAL SX Plan: CONTINUE DETOX. ZOFRAN PRN
--- NOTE | 2016-08-19 15:32 | DS ---
[facility] Detox Discharge Summary Admission Date: 08/16/16 Discharge Date: 08/19/16 - History Present History: Cocaine Dependence, Opioid Dependence Additional Comments: PT DECLINED TO CONTINUE WITH DETOX. ALERT O X 3. NAD. Pertinent Past History: COPD - Physical Exam Results Vital Signs: Vital Signs Temperature 98.4 F 08/19/16 14:18 Pulse Rate 97 H 08/19/16 14:18 Respiratory Rate 18 08/19/16 14:18 Blood Pressure 126/87 08/19/16 14:18 O2 Sat by Pulse Oximetry (%) Pertinent Admission Physical Exam Findings: WITHDRAWAL SX - Treatment Hospital Course: Discharged Condition Good - Medication Discharge Medications: Ambulatory Orders NK [No Known Home Medication] 03/30/15 - Diagnosis (1) Nicotine dependence Current Visit: Yes Status: Chronic Qualifiers: Nicotine product type: cigarettes Substance use status: in withdrawal Qualified Code(s): F17.213 - Nicotine dependence, cigarettes, with withdrawal (2) Opioid dependence with withdrawal Current Visit: Yes Status: Acute (3) COPD (chronic obstructive pulmonary disease) Current Visit: Yes Status: Chronic Qualifiers: COPD type: emphysema Emphysema type: unilateral Qualified Code(s ): J43.0 - Unilateral pulmonary emphysema [MacLeod's syndrome] (4) Cocaine dependence Current Visit: Yes Status: Acute Qualifiers: Substance use status: uncomplicated Qualified Code(s): F14.20 - Cocaine dependence, uncomplicated - AMA Did Patient Leave Against Medical Advice: Yes (AMA)
--- NOTE | 2016-08-19 15:45 | PN ---
[facility] Progress Note Note: DISCHARGE SUMMARY WRITTEN IN ERROR ON THIS PATIENT. PT IS CURRENTLY ACTIVELY DETOXING. THANKS.
[2016-08-19] MEDS: THIAMINE HCL 100 MG TABLET (FP) PO SCH (22:31)
[2016-08-20] MEDS: ONDANSETRON *ODT* 4 MG TABLET SL PRN (08:17)
[2016-08-20] MEDS ORDERED: METHADONE HCL 10 MG TABLET (FOR DETOX USE ONLY) PO ONE (10:00)
[2016-08-20] MEDS: PRENATAL VITAMINS W/ FOLIC ACID TABLET (FP) PO SCH (10:19)
[2016-08-20] MEDS: NICOTINE 21 MG/24 HOURS TOPICAL PATCH TD SCH (10:19)
--- NOTE | 2016-08-20 13:34 | PN ---
[facility] Progress Note (SOAP) Subjective: Body Aches, Interrupted sleep, Stomach Cramping, Sweating. Objective: PT. A & O X 3, OBSERVED AMBULATING ON UNIT. 08/20/16 13:33 Vital Signs Temperature 98.0 F 08/20/16 09:50 Pulse Rate 98 H 08/20/16 09:50 Respiratory Rate 18 08/20/16 09:50 Blood Pressure 131/82 08/20/16 09:50 O2 Sat by Pulse Oximetry (%) Laboratory Last Values WBC 6.6 K/mm3 (4.0-10.0) D 08/17/16 07:00 RBC 4.86 M/mm3 (4.00-5.60) 08/17/16 07:00 Hgb 13.7 GM/dL (11.7-16.9) 08/17/16 07:00 Hct 42.2 % (35.4-49) 08/17/16 07:00 MCV 86.8 fl (80-96) 08/17/16 07:00 MCHC 32.6 g/dl (32.0-35.9) 08/17/16 07:00 RDW 13.9 % (11.9-15.9) 08/17/16 07:00 Plt Count 209 K/MM3 (134-434) 08/17/16 07:00 MPV 9.0 fl (7.5-11.1) 08/17/16 07:00 Sodium 142 mmol/L (136-145) 08/17/16 07:00 Potassium 4.1 mmol/L (3.5-5.1) 08/17/16 07:00 Chloride 105 mmol/L (98-107) 08/17/16 07:00 Carbon Dioxide 27 mmol/L (21-32) 08/17/16 07:00 Anion Gap 10 (8-16) 08/17/16 07:00 BUN 13 mg/dL (7-18) 08/17/16 07:00 Creatinine 0.8 mg/dL (0.7-1.3) 08/17/16 07:00 Creat Clearance w eGFR > 60 (>60) 08/17/16 07:00 Random Glucose 89 mg/dL (74-106) 08/17/16 07:00 Calcium 9.0 mg/dL (8.5-10.1) 08/17/16 07:00 Total Bilirubin 0.3 mg/dL (0.2-1.0) D 08/17/16 07:00 AST 19 U/L (15-37) D 08/17/16 07:00 ALT 24 U/L (12-78) 08/17/16 07:00 Alkaline Phosphatase 58 U/L (45-117) 08/17/16 07:00 Total Protein 6.6 g/dl (6.4-8.2) 08/17/16 07:00 Albumin 3.7 g/dl (3.4-5.0) 08/17/16 07:00 Urine Color Yellow 08/18/16 19:45 Urine Appearance Cloudy 08/18/16 19:45 Urine pH 8.0 (5.0-8.0) D 08/18/16 19:45 Ur Specific [place] 1.029 (1.001-1.035) 08/18/16 19:45 Urine Protein 1+ (NEGATIVE) H 08/18/16 19:45 Urine Glucose (UA) Negative (NEGATIVE) 08/18/16 19:45 Urine Ketones 1+ (NEGATIVE) H 08/18/16 19:45 Urine Blood Negative (NEGATIVE) 08/18/16 19:45 Urine Nitrite Negative (NEGATIVE) 08/18/16 19:45 Urine Bilirubin Negative (NEGATIVE) 08/18/16 19:45 Urine Urobilinogen Negative E.U./dl (0.2-1.0) 08/18/16 19:45 Ur Leukocyte Esterase Negative (NEGATIVE) 08/18/16 19:45 Urine RBC 1 /hpf (0-3) 08/18/16 19:45 Urine WBC 1 /hpf (3-5) 08/18/16 19:45 Urine Bacteria Rare /hpf (NONE SEEN) 08/18/16 19:45 Urine Mucus Many 08/18/16 19:45 Urine Yeast Few 08/18/16 19:45 RPR Titer Nonreactive (NONREACTIVE) 08/17/16 07:00 Hepatitis C Antibody <0.1 s/co ratio (0.0-0.9) 08/16/16 07:00 HIV 1&2 Antibody Screen Negative 08/17/16 07:00 HIV P24 Antigen Negative 08/17/16 07:00 LABS NOTED. Assessment: 08/20/16 13:34 WITHDRAWAL SYMPTOMS. Plan: CONTINUE DETOX. ADVISED PATIENT TO FOLLOW-UP WITH CARTOGRAPHY TECHNICIAN / REHAB MEDICAL PROVIDER AFTER DISCHARGE FROM DETOX FOR GENERAL MEDICAL ASSESSMENT.
[2016-08-20] MEDS: THIAMINE HCL 100 MG TABLET (FP) PO SCH (22:35)
[2016-08-21] MEDS ORDERED: METHADONE HCL 5 MG TABLET (FOR DETOX USE ONLY) PO ONE (06:00)
[2016-08-21 06:09] VITALS: BP 122/78; PULSE 95; TEMP 96.9
--- NOTE | 2016-08-21 11:41 | DS ---
[facility] Detox Discharge Summary Admission Date: 08/16/16 Discharge Date: 08/21/16 - History Present History: Opioid Dependence Pertinent Past History: Denies - Physical Exam Results Vital Signs: Vital Signs Temperature 96.9 F L 08/21/16 06:09 Pulse Rate 95 H 08/21/16 06:09 Respiratory Rate 18 08/21/16 06:09 Blood Pressure 122/78 08/21/16 06:09 O2 Sat by Pulse Oximetry (%) Pertinent Admission Physical Exam Findings: Withdrawal symptoms Laboratory Tests 08/16/16 08/17/16 08/17/16 07:00 07:00 07:00 WBC 6.6 D RBC 4.86 Hgb 13.7 Hct 42.2 MCV 86.8 MCHC 32.6 RDW 13.9 Plt Count 209 MPV 9.0 Sodium 142 Potassium 4.1 Chloride 105 Carbon Dioxide 27 Anion Gap 10 BUN 13 Creatinine 0.8 Creat Clearance w eGFR > 60 Random Glucose 89 Calcium 9.0 Total Bilirubin 0.3 D AST 19 D ALT 24 Alkaline Phosphatase 58 Total Protein 6.6 Albumin 3.7 Urine Color Urine Appearance Urine pH Ur Specific [place] Urine Protein Urine Glucose (UA) Urine Ketones Urine Blood Urine Nitrite Urine Bilirubin Urine Urobilinogen Ur Leukocyte Esterase Urine RBC Urine WBC Urine Bacteria Urine Mucus Urine Yeast RPR Titer Hepatitis C Antibody <0.1 HIV 1&2 Antibody Screen HIV P24 Antigen 08/17/16 08/17/16 08/18/16 07:00 07:00 19:45 WBC RBC Hgb Hct MCV MCHC RDW Plt Count MPV Sodium Potassium Chloride Carbon Dioxide Anion Gap BUN Creatinine Creat Clearance w eGFR Random Glucose Calcium Total Bilirubin AST ALT Alkaline Phosphatase Total Protein Albumin Urine Color Yellow Urine Appearance Cloudy Urine pH 8.0 D Ur Specific [place] 1.029 Urine Protein 1+ H Urine Glucose (UA) Negative Urine Ketones 1+ H Urine Blood Negative Urine Nitrite Negative Urine Bilirubin Negative Urine Urobilinogen Negative Ur Leukocyte Esterase Negative Urine RBC 1 Urine WBC 1 Urine Bacteria Rare Urine Mucus Many Urine Yeast Few RPR Titer Nonreactive Hepatitis C Antibody HIV 1&2 Antibody Screen Negative HIV P24 Antigen Negative Labs noted - Treatment Hospital Course: Detox Protocol Followed, Detoxed Safely, Responded well, Discharged Condition Good - Medication Discharge Medications: Ambulatory Orders NK [No Known Home Medication] 03/30/15 - Diagnosis (1) Nicotine dependence Status: Chronic Qualifiers: Nicotine product type: cigarettes Substance use status: in withdrawal Qualified Code(s): F17.213 - Nicotine dependence, cigarettes, with withdrawal (2) Opioid dependence, uncomplicated Status: Acute - AMA Did Patient Leave Against Medical Advice: No
== END 2016-08-21 09:05 | disposition home or self-care (01) | DRG 773 ==
LOC: YASAS 21:04 → Y3N 22:04
PROVIDERS: ADMIT Internal Medicine; ATTEND Internal Medicine
PROC: HZ2ZZZZ Detoxification Services for Substance Abuse Treatment (ICD-10-PCS; principal; 2016-08-21)
DX: F11.20 Opioid dependence, uncomplicated (principal); F17.213 Nicotine dependence, cigarettes, with withdrawal; R63.4 Abnormal weight loss; Z68.23 Body mass index [BMI] 23.0-23.9, adult
CPT/HCPCS: 36415; 80053; 81003; 81015; 85027; 86593; 87389; 93005; 93010

== ENCOUNTER 2017-01-07 11:35 | Inpatient (IN) | payer OTHER ==
[2017-01-07 12:28] VITALS: BMI 23.2
--- NOTE | 2017-01-07 12:36 | HP ---
COWS - Scale Resting Pulse: 0= [place] 80 or Below Sweatin= Chills/Flushing Restless Observation: 1= Difficult to Sit Still Pupil Size: 0= Normal to Room Light Bone or Joint Aches: 1= Mild Discomfort Runny Nose/ Eye Tearin= Nasal Congestion GI Upset > 30mins: 1= Stomach Cramp Tremor Observation: 1= Tremor [place], Not Seen Yawning Observation: 1= 1-2x During Session Anxiety or Irritability: 1=Feels Anxious/Irritable Goose Flesh Skin: 0=Smooth Skin COWS Score: 8 CIWA Score - CIWA Score Nausea/Vomitin-Mild Nausea/No Vomiting Muscle Tremors: 4-Moderate,w/Arms Extend Anxiety: 4-Mod. Anxious/Guarded Agitation: 1-Slight > Activity Paroxysmal Sweats: 1-Minimal Palms Moist Orientation: 0-Oriented Tacttile Disturbances: 1-Very Mild Itch/Numbness Auditory Disturbances: 1-Very Mild Visual Disturbances: 1-Very Mild Sensitivity Headache: 1-Very Mild CIWA-Ar Total Score: 15 Admission ROS S - HPI Chief Complaint: I need to put the brakes on, I need support to stop Allergies/Adverse Reactions: Allergies Allergy/AdvReac Type Severity Reaction Status Date / Time No Known Allergies Allergy Verified 08/16/16 22:09 History of Present Illness: 31 yo gentleman here for detox from alcohol and heroin. No seizures, last detox was here july 2016. No history of black outs or seizures. Exam Limitations: Clinical Condition - Ebola screening Have you traveled outside of the country in the last 21 days: No Have you had contact with anyone from an Ebola affected area: No Have you been sick,other than usual withdrawal symptoms: No Do you have a fever: No - Review of Systems Constitutional: Loss of Appetite, Malaise, Changes in sleep EENT: reports: Nose Congestion Respiratory: reports: No Symptoms reported Cardiac: reports: No Symptoms Reported GI: reports: Nausea, Poor Appetite : reports: No Symptoms Reported Musculoskeletal: reports: Back Pain, Muscle Pain Neuro: reports: Headache Endocrine: reports: No Symptoms Reported Hematology: reports: No Symptoms Reported Psychiatric: reports: Judgement Intact, Mood/Affect Appropiate, Orientated x3, Anxious Other Systems: Reviewed and Negative Patient History - Patient Medical History Hx Anemia: No Hx Asthma: No Hx Chronic Obstructive Pulmonary Disease (COPD): No Hx Cancer: No Hx Cardiac Disorders: No Hx Congestive Heart Failure: No Hx Hypertension: No Hx Hypercholesterolemia: No Hx Pacemaker: No HX Cerebrovascular Accident: No Hx Seizures: No Hx Dementia: No Hx Diabetes: No Hx Gastrointestinal Disorders: No Hx Liver Disease: No Hx Genitourinary Disorders: No Hx Sexually Transmitted Disorders: No Hx Renal Disease (ESRD): No Hx Thyroid Disease: No Hx Human Immunodeficiency Virus (HIV): No (negative ) Hx Hepatitis C: No (negative) Hx Depression: Yes (no meds, no hospitalizations) Hx Suicide Attempt: No Hx Bipolar Disorder: No Hx Schizophrenia: No - Patient Surgical History Past Surgical History: Yes Hx Neurologic Surgery: No Hx Cataract Extraction: No Hx Cardiac Surgery: No Hx Lung Surgery: No Hx Breast Surgery: No Hx Breast Biopsy: No Hx Abdominal Surgery: No Hx Appendectomy: No Hx Cholecystectomy: No Hx Genitourinary Surgery: No Hx Section: No Hx Orthopedic Surgery: Yes (RT. THUMB FOR CHIP BONE in 2004 in [facility]) Anesthesia Reaction: No - PPD History Previous Implant?: Yes Documented Results: Negative w/proof Date: 04/11/16 Results: 0 mm PPD to be Administered?: No - Reproductive History Patient is a Female of Child Bearing Age (11 -55 yrs old): No (male) - Smoking Cessation Smoking history: Current every day smoker Have you smoked in the past 12 months: Yes Aproximately how many cigarettes per day: 20 Cigars Per Day: 0 Hx Chewing Tobacco Use: No Initiated information on smoking cessation: Yes 'Breaking Loose' booklet given: 01/07/17 (give on floor) - Substance & Tx. History Hx Alcohol Use: Yes Hx Substance Use: Yes Substance Use Type: Alcohol, Cocaine, Heroin, Marijuana Hx Substance Use Treatment: Yes (detox) - Substances Abused Alcohol Route: Oral Frequency: Daily Amount used: six pack of 16 oz beer Age of first use: 17 Date of Last Use: 01/07/17 Heroin Route: Injection Frequency: Daily Amount used: 15 bags Age of first use: 25 Date of Last Use: 01/07/17 Cocaine Route: Smoking Frequency: Daily Amount used: 2gm Age of first use: 19 Date of Last Use: 01/04/17 Marijuana/Hashish Route: Smoking Frequency: Daily Amount used: 1 joint Age of first use: 16 Date of Last Use: 01/04/17 Family Disease History - Family Disease History Family Disease History: Heart Disease: Mother (, HEART ATTACK), Other: Father (living, [place]), Sister (one living, healthy) Admission Physical Exam [facility] - Vital Signs Vital Signs: Vital Signs - 24 hr 01/07/17 12:27 Temperature 98.2 F Pulse Rate 64 Respiratory 20 Rate Blood Pressure 124/61 - Physical General Appearance: Yes: Nourished, Appropriately Dressed, Mild Distress, Anxious HEENTM: Yes: Hearing grossly Normal, Normal ENT Inspection, Normocephalic, Normal Voice, Pharynx Normal Respiratory: Yes: Chest Non-Tender, Lungs Clear, Normal Breath Sounds Neck: Yes: No masses,lesions,Nodules, Supple Breast: Yes: Breast Exam Deferred Cardiology: Yes: Regular Rhythm, Regular Rate Abdominal: Yes: Normal Bowel Sounds, Soft Genitourinary: Yes: Frequency Back: Yes: Normal Inspection Musculoskeletal: Yes: full range of Motion, Gait Steady Extremities: Yes: Normal Capillary Refill, Normal Inspection Neurological: Yes: Fully Oriented, Alert, Normal Mood/Affect, Normal Response Integumentary: Yes: Normal Color, Warm Lymphatic: Yes: Within Normal Limits - Diagnostic (1) Opioid dependence, uncomplicated Current Visit: Yes Status: Chronic (2) Alcohol dependence with uncomplicated withdrawal Current Visit: Yes Status: Chronic (3) Cocaine dependence Current Visit: Yes Status: Chronic Qualifiers: Substance use status: uncomplicated Qualified Code(s): F14.20 - Cocaine dependence, uncomplicated (4) Nicotine dependence Current Visit: Yes Status: Chronic Qualifiers: Nicotine product type: cigarettes Substance use status: in withdrawal Qualified Code(s): F17.213 - Nicotine dependence, cigarettes, with withdrawal Cleared for Admission [facility] - Detox or Rehab [facility] Level of Care: Medically Managed Detox Regimen/Protocol: Methadone/Librium [facility] Breath Alcohol Content Breath Alcohol Content: 0 Urine Drug Screen - Results Drug Screen Negative: No Urine Drug Screen Results: THC-Marijuana, OLI-Cocaine, OPI-Opiates
[2017-01-07] MEDS ORDERED: ACETAMINOPHEN 325 MG TABLET (FP) PO PRN (13:00)
[2017-01-07] MEDS ORDERED: NICOTINE POLACRILEX 4 MG GUM BUC PRN (13:00)
[2017-01-07] MEDS ORDERED: diphenhydrAMINE HCL 50 MG CAPSULE PO PRN (13:00)
[2017-01-07] MEDS ORDERED: MAGNESIUM HYDROX 2400MG/30ML ORAL SUSPENSION 30 ML CUP PO PRN (13:00)
[2017-01-07] MEDS ORDERED: MENTHOL/PHENOL 1 EACH UD MM PRN (13:00)
[2017-01-07] MEDS ORDERED: IBUPROFEN 400 MG TABLET (FP) PO PRN (13:00)
[2017-01-07] MEDS ORDERED: P-EPHED 60MG/TRIPROLIDI 2.5MG TABLET PO PRN (13:00)
[2017-01-07] MEDS ORDERED: chlordiazePOXIDE HCL 25 MG CAPSULE PO PRN (13:00)
[2017-01-07] MEDS ORDERED: hydrOXYzine PAMOATE 50 MG CAPSULE (FP) PO PRN (13:00)
[2017-01-07] MEDS ORDERED: METHADONE HCL 10 MG TABLET (FOR DETOX USE ONLY) PO ONE ×2 (13:00→23:00)
[2017-01-07] MEDS ORDERED: MAG HYDROX/AL HYDROX/SIMETH 30 ML UNIT-DOSE CUP PO PRN (13:00)
[2017-01-07] MEDS ORDERED: LOPERAMIDE HCL 2 MG CAPSULE PO PRN (13:00)
[2017-01-07] MEDS ORDERED: guaiFENesin/D-METHORPHAN HB 10 ML UNIT-DOSE CUPS PO PRN (13:00)
[2017-01-07] MEDS ORDERED: MAGNESIUM CITRATE 300 ML BOTTLE PO PRN (13:00)
[2017-01-07] MEDS ORDERED: chlordiazePOXIDE HCL 25 MG CAPSULE PO ONE (15:00)
[2017-01-07 17:41] LABS: URINE APPEARANCE SLCLOUDY; URINE BLOOD NEGATIVE (NEGATIVE); URINE COLOR AMBER; URINE GLUCOSE (UA) NEGATIVE (NEGATIVE); URINE KETONE NEGATIVE (NEGATIVE); URINE LEUK ESTERASE NEGATIVE (NEGATIVE); URINE NITRITE NEGATIVE (NEGATIVE); URINE UROBILINOGEN 4.0 E.U/dl mg/dL (0.2-1.0)
[2017-01-07 17:49] LABS: URINE PROTEIN 1+ (NEGATIVE)
[2017-01-07] MEDS: chlordiazePOXIDE HCL 25 MG CAPSULE PO SCH ×2 (18:00→23:51)
[2017-01-07 18:02] LABS: URINE MUCUS FEW; URINE RBC 1 /hpf (0-3); URINE WBC 1 /hpf (3-5)
[2017-01-07] MEDS: THIAMINE HCL 100 MG TABLET (FP) PO SCH (23:51)
[2017-01-08] MEDS: chlordiazePOXIDE HCL 25 MG CAPSULE PO SCH (05:19)
[2017-01-08] MEDS ORDERED: METHADONE HCL 10 MG TABLET (FOR DETOX USE ONLY) PO SCH (10:00)
[2017-01-08] MEDS: PRENATAL VITAMINS W/ FOLIC ACID TABLET (FP) PO SCH (10:20)
[2017-01-08 10:35] LABS: MCH 29.7 pg (25.7-33.7); MCHC 33.4 g/dl (32.0-35.9); MEAN CELL VOLUME 88.9 fl (80-96); MEAN PLT VOLUME 9.4 fl (7.5-11.1); PLATELET COUNT 308 K/MM3 (134-434); RDW 14.2 % (11.9-15.9); WHITE BLOOD COUNT 8.3 K/mm3 (4.0-10.0)
[2017-01-08] MEDS ORDERED: diazePAM 5 MG TABLET PO ONE (10:40)
[2017-01-08 10:48] LABS: ALBUMIN 3.7 g/dl (3.4-5.0); ANION GAP 5 (8-16); CALCIUM 9.4 mg/dL (8.5-10.1); CO2 28 mmol/L (21-32); GLUCOSE,RANDOM 96 mg/dL (74-106); SGOT/AST 27 U/L (15-37); SGPT/ALT 52 U/L (12-78)
[2017-01-08 10:50] LABS: ALK PHOS 60 U/L (45-117); BILIRUBIN,TOTAL 0.5 mg/dL (0.2-1.0); CREATININE 0.9 mg/dL (0.7-1.3); TOT PROT 6.9 g/dl (6.4-8.2)
[2017-01-08 11:10] LABS: HIV 1 & 2 AB NEGATIVE; HIV 1 AGp24 NEGATIVE
--- NOTE | 2017-01-08 12:12 | PN ---
John Progress Note Note: Patient's name is on my consult list. He was approached at bedside and was found eating lunch. Pit Crew Support Worker excused himself for disturbing him while eating his lunch and he was politely asked to meet after he finished his lunch for a psychiatric interview. He declined saying he has no need for that
[2017-01-08] MEDS: diazePAM 5 MG TABLET PO SCH ×2 (13:07→22:55)
--- NOTE | 2017-01-08 14:52 | PN ---
S CIWA - CIWA Score Nausea/Vomitin Muscle Tremors: 4-Moderate,w/Arms Extend Anxiety: 4-Mod. Anxious/Guarded Agitation: 3 Paroxysmal Sweats: 3 Orientation: 0-Oriented Tacttile Disturbances: 0-None Auditory Disturbances: 0-None Visual Disturbances: 0-None Headache: 0-None Present CIWA-Ar Total Score: 16 [facility] COWS - Scale Resting Pulse: 1= [place] 81-100 Sweatin=Flushed/Facial Moisture Restless Observation: 1= Difficult to Sit Still Pupil Size: 0= Normal to Room Light Bone or Joint Aches: 2= Severe Diffuse Aches Runny Nose/ Eye Tearin= Runny Nose/Eyes GI Upset > 30mins: 2= Nausea/Diarrhea Tremor Observation of Outstretched Hands: 2= Slight Tremor Visible Yawning Observation: 1= 1-2x During Session Anxiety or Irritability: 2=Irritable/Anxious Goose Flesh Skin: 0=Smooth Skin COWS Score: 15 S Progress Note (SOAP) Subjective: Anxiety,tremors,sweating,interrupted sleep,restless, body aches. Objective: 01/08/17 14:51 Vital Signs - 8 hr 01/08/17 01/08/17 10:16 13:34 Temperature 96.5 F L 97.5 F L Pulse Rate 93 H 71 Respiratory 18 18 Rate Blood Pressure 138/73 134/74 Laboratory Tests 01/07/17 01/08/17 01/08/17 17:20 07:30 07:30 WBC 8.3 RBC 5.49 Hgb 16.3 D Hct 48.8 D MCV 88.9 MCH 29.7 MCHC 33.4 RDW 14.2 Plt Count 308 D MPV 9.4 Sodium Potassium Chloride Carbon Dioxide Anion Gap BUN Creatinine Creat Clearance w eGFR Random Glucose Calcium Total Bilirubin AST ALT Alkaline Phosphatase Total Protein Albumin Urine Color [place] Urine Appearance Slcloudy Urine pH 5.0 D Ur Specific [place] 1.025 Urine Protein 1+ H Urine Glucose (UA) Negative Urine Ketones Negative Urine Blood Negative Urine Nitrite Negative Urine Bilirubin 2.0 Urine Urobilinogen 4.0 e.u/dl Urine RBC 1 Urine WBC 1 Urine Mucus Few RPR Titer HIV 1&2 Antibody Screen Negative HIV P24 Antigen Negative 01/08/17 01/08/17 07:30 07:30 WBC RBC Hgb Hct MCV MCH MCHC RDW Plt Count MPV Sodium 138 Potassium 4.4 Chloride 105 Carbon Dioxide 28 Anion Gap 5 L BUN 11 Creatinine 0.9 Creat Clearance w eGFR > 60 Random Glucose 96 Calcium 9.4 Total Bilirubin 0.5 D AST 27 D ALT 52 D Alkaline Phosphatase 60 Total Protein 6.9 Albumin 3.7 Urine Color Urine Appearance Urine pH Ur Specific [place] Urine Protein Urine Glucose (UA) Urine Ketones Urine Blood Urine Nitrite Urine Bilirubin Urine Urobilinogen Urine RBC Urine WBC Urine Mucus RPR Titer Nonreactive HIV 1&2 Antibody Screen HIV P24 Antigen labs noted Assessment: 01/08/17 14:52 Withdrawal sx Plan: Continue detox
[2017-01-08] MEDS ORDERED: chlordiazePOXIDE HCL 25 MG CAPSULE PO SCH (17:00)
[2017-01-08] MEDS: diazePAM 5 MG TABLET PO PRN (17:33)
[2017-01-08] MEDS: THIAMINE HCL 100 MG TABLET (FP) PO SCH (22:55)
[2017-01-09] MEDS: diazePAM 5 MG TABLET PO SCH ×2 (05:21→14:17)
[2017-01-09] MEDS ORDERED: METHADONE HCL 5 MG TABLET (FOR DETOX USE ONLY) PO SCH (10:00)
[2017-01-09] MEDS: PRENATAL VITAMINS W/ FOLIC ACID TABLET (FP) PO SCH (10:24)
[2017-01-09] MEDS: diazePAM 5 MG TABLET PO PRN (10:26)
--- NOTE | 2017-01-09 10:28 | PN ---
[facility] CIWA - CIWA Score Nausea/Vomitin Muscle Tremors: 3 Anxiety: 2 Agitation: 2 Paroxysmal Sweats: 1-Minimal Palms Moist Orientation: 0-Oriented Tacttile Disturbances: 1-Very Mild Itch/Numbness Auditory Disturbances: 1-Very Mild Visual Disturbances: 1-Very Mild Sensitivity Headache: 2-Mild CIWA-Ar Total Score: 16 BHS COWS - Scale Resting Pulse: 0= [place] 80 or Below Sweatin= Chills/Flushing Restless Observation: 3= Extraneous Movement Pupil Size: 1= Pupils >than Normal Bone or Joint Aches: 2= Severe Diffuse Aches Runny Nose/ Eye Tearin= Runny Nose/Eyes GI Upset > 30mins: 2= Nausea/Diarrhea Tremor Observation of Outstretched Hands: 2= Slight Tremor Visible Yawning Observation: 1= 1-2x During Session Anxiety or Irritability: 2=Irritable/Anxious Goose Flesh Skin: 0=Smooth Skin COWS Score: 16 S Progress Note (SOAP) Subjective: alert,irritable,anxious,interrupted sleep,tremor,pain in the body and back Objective: 01/09/17 10:26 Vital Signs Temperature 96.3 F L 01/09/17 10:15 Pulse Rate 77 01/09/17 10:15 Respiratory Rate 20 01/09/17 10:15 Blood Pressure 133/85 01/09/17 10:15 O2 Sat by Pulse Oximetry (%) 01/09/17 10:26 ekg nsr,normal ecg 01/09/17 10:27 Laboratory Last Values WBC 8.3 K/mm3 (4.0-10.0) 01/08/17 07:30 RBC 5.49 M/mm3 (4.00-5.60) 01/08/17 07:30 Hgb 16.3 GM/dL (11.7-16.9) D 01/08/17 07:30 Hct 48.8 % (35.4-49) D 01/08/17 07:30 MCV 88.9 fl (80-96) 01/08/17 07:30 MCH 29.7 pg (25.7-33.7) 01/08/17 07:30 MCHC 33.4 g/dl (32.0-35.9) 01/08/17 07:30 RDW 14.2 % (11.9-15.9) 01/08/17 07:30 Plt Count 308 K/MM3 (134-434) D 01/08/17 07:30 MPV 9.4 fl (7.5-11.1) 01/08/17 07:30 Sodium 138 mmol/L (136-145) 01/08/17 07:30 Potassium 4.4 mmol/L (3.5-5.1) 01/08/17 07:30 Chloride 105 mmol/L (98-107) 01/08/17 07:30 Carbon Dioxide 28 mmol/L (21-32) 01/08/17 07:30 Anion Gap 5 (8-16) L 01/08/17 07:30 BUN 11 mg/dL (7-18) 01/08/17 07:30 Creatinine 0.9 mg/dL (0.7-1.3) 01/08/17 07:30 Creat Clearance w eGFR > 60 (>60) 01/08/17 07:30 Random Glucose 96 mg/dL (74-106) 01/08/17 07:30 Calcium 9.4 mg/dL (8.5-10.1) 01/08/17 07:30 Total Bilirubin 0.5 mg/dL (0.2-1.0) D 01/08/17 07:30 AST 27 U/L (15-37) D 01/08/17 07:30 ALT 52 U/L (12-78) D 01/08/17 07:30 Alkaline Phosphatase 60 U/L (45-117) 01/08/17 07:30 Total Protein 6.9 g/dl (6.4-8.2) 01/08/17 07:30 Albumin 3.7 g/dl (3.4-5.0) 01/08/17 07:30 Urine Color Arti 01/07/17 17:20 Urine Appearance Slcloudy 01/07/17 17:20 Urine pH 5.0 (5.0-8.0) D 01/07/17 17:20 Ur Specific [place] 1.025 (1.005-1.025) 01/07/17 17:20 Urine Protein 1+ (NEGATIVE) H 01/07/17 17:20 Urine Glucose (UA) Negative (NEGATIVE) 01/07/17 17:20 Urine Ketones Negative (NEGATIVE) 01/07/17 17:20 Urine Blood Negative (NEGATIVE) 01/07/17 17:20 Urine Nitrite Negative (NEGATIVE) 01/07/17 17:20 Urine Bilirubin 2.0 (NEGATIVE) 01/07/17 17:20 Urine Urobilinogen 4.0 e.u/dl mg/dL (0.2-1.0) 01/07/17 17:20 Urine RBC 1 /hpf (0-3) 01/07/17 17:20 Urine WBC 1 /hpf (3-5) 01/07/17 17:20 Urine Mucus Few 01/07/17 17:20 RPR Titer Nonreactive (NONREACTIVE) 01/08/17 07:30 HIV 1&2 Antibody Screen Negative 01/08/17 07:30 HIV P24 Antigen Negative 01/08/17 07:30 Assessment: 01/09/17 10:27 withdrawal symptom Plan: continue detox
--- NOTE | 2017-01-09 10:48 | CONSULT ---
[facility] Psychiatric Consult - Data Date of interview: 01/09/17 Admission source: [facility] Identifying data: This is 31 years old male with no psychiatric hospitalization history , this is his second Detox with Alcohol, Cocaine, Heroin and Cannabis at [address] [place] [address] Substance Abuse History: - Smoking Cessation. Smoking history: Current every day smoker. Have you smoked in the past 12 months: Yes. Aproximately how many cigarettes per day: 20. Cigars Per Day: 0. Hx Chewing Tobacco Use: No. Initiated information on smoking cessation: Yes. 'Breaking Loose' booklet given : 01/07/17 (give on floor). - Substance & Tx. History. Hx Alcohol Use: Yes. Hx Substance Use: Yes. Substance Use Type: Alcohol, Cocaine, Heroin, Marijuana. Hx Substance Use Treatment: Yes (detox). - Substances Abused. Alcohol. Route: Oral. Frequency: Daily. Amount used: six pack of 16 oz beer. Age of first use: 17. Date of Last Use: 01/07/17. Heroin. Route: Injection. Frequency: Daily. Amount used: 15 bags. Age of first use: 25. Date of Last Use: 01/07/17. Cocaine. Route: Smoking. Frequency: Daily. Amount used: 2gm. Age of first use: 19. Date of Last Use: 01/04/17. Marijuana/Hashish. Route: Smoking. Frequency: Daily. Amount used: 1 joint. Age of first use: 16. Date of Last Use: 01/04/17 Medical History: Denies any significant medical issues Psychiatric History: Denies past psychiatric history Physical/Sexual Abuse/Trauma History: Denies Additional Comment: Observation. Detox Unit Care Protocol Mental Status Exam - Mental Status Exam Alert and Oriented to: Person Cognitive Function: Fair Patient Appearance: Unkempt Mood: Sad Affect: Flat Patient Behavior: Sedated Speech Pattern: Delayed Voice Loudness: Mildly Soft/Quiet Thought Process: Circumstantial Thought Disorder: Being Controlled Hallucinations: Denies Suicidal Ideation: Denies Homicidal Ideation: Denies Insight/Judgement: Fair Sleep: Difficulty falling asleep Appetite: Fair Muscle strength/Tone: Mild Hypotonicity Gait/Station: Shuffling Additional Comments: Observation. Detox Unit Care Protocol Psychiatric Findings - Problem List ([place] 1, 2,3) (1) Alcohol dependence with uncomplicated withdrawal Current Visit: Yes Status: Chronic (2) Cocaine dependence Current Visit: Yes Status: Chronic Qualifiers: Substance use status: uncomplicated Qualified Code(s): F14.20 - Cocaine dependence, uncomplicated (3) Nicotine dependence Current Visit: Yes Status: Chronic Qualifiers: Nicotine product type: cigarettes Substance use status: in withdrawal Qualified Code(s): F17.213 - Nicotine dependence, cigarettes, with withdrawal (4) Opioid dependence, uncomplicated Current Visit: Yes Status: Chronic (5) Opioid dependence with withdrawal Current Visit: No Status: Acute (6) Weight decreased Current Visit: No Status: Acute (7) Drug-induced mood disorder Current Visit: Yes Status: Acute - Initial Treatment Plan Initial Treatment Plan: Observation. Detox Unit Care Protocol
[2017-01-09 13:26] VITALS: BP 128/77; PULSE 93; TEMP 98.2
--- NOTE | 2017-01-09 15:33 | PN ---
S Progress Note Note: patient did not want to complete treatment,signed release ama,seen by counselor
--- NOTE | 2017-01-09 15:36 | DS ---
[facility] Detox Discharge Summary Admission Date: 01/07/17 Discharge Date: 01/09/17 - History Present History: Alcohol Dependence, Cocaine Dependence, Opioid Dependence Additional Comments: patient did not want to complete treatment due to personal problem,seen by counselor,signed release ama Pertinent Past History: weight loss - Physical Exam Results Vital Signs: Vital Signs Temperature 98.2 F 01/09/17 13:26 Pulse Rate 93 H 01/09/17 13:26 Respiratory Rate 18 01/09/17 13:26 Blood Pressure 128/77 01/09/17 13:26 O2 Sat by Pulse Oximetry (%) Pertinent Admission Physical Exam Findings: withdrawal symptom - Medication Discharge Medications: Ambulatory Orders NK [No Known Home Medication] 03/30/15 - AMA Did Patient Leave Against Medical Advice: Yes
[2017-01-09] MEDS ORDERED: chlordiazePOXIDE 5 MG CAPSULE PO SCH (17:00)
--- NOTE | 2017-01-09 17:02 | EKG ---
Test Reason : Blood Pressure : / mmHG Vent. Rate : 063 BPM Atrial Rate : 063 BPM P-R Int : 140 ms QRS Dur : 090 ms QT Int : 392 ms P-R-T Axes : 066 -10 049 degrees QTc Int : 401 ms NORMAL SINUS RHYTHM NORMAL ECG WHEN COMPARED WITH ECG OF 16-AUG-2016 21:58, NO SIGNIFICANT CHANGE WAS FOUND Confirmed by STEFFANY BRASWELL MD ([id number]) on 01/09/2017 5:01:43 PM Referred By: Confirmed By:STEFFANY BRASWELL MD
[2017-01-10] MEDS ORDERED: diazePAM 5 MG TABLET PO SCH (10:00)
[2017-01-10] MEDS ORDERED: chlordiazePOXIDE HCL 10 MG CAPSULE PO SCH (17:00)
[2017-01-11] MEDS ORDERED: METHADONE HCL 10 MG TABLET (FOR DETOX USE ONLY) PO SCH (10:00)
[2017-01-12] MEDS ORDERED: METHADONE HCL 5 MG TABLET (FOR DETOX USE ONLY) PO SCH (06:00)
[2017-01-12] MEDS ORDERED: diazePAM 5 MG TABLET PO SCH (10:00)
== END 2017-01-09 15:35 | disposition left against medical advice (07) | DRG 770 ==
LOC: YASAS 11:35 → Y6N 13:29
PROVIDERS: ADMIT Internal Medicine; ATTEND Internal Medicine
PROC: HZ2ZZZZ Detoxification Services for Substance Abuse Treatment (ICD-10-PCS; principal; 2017-01-07)
DX: F11.23 Opioid dependence with withdrawal (principal); F10.230 Alcohol dependence with withdrawal, uncomplicated; F14.20 Cocaine dependence, uncomplicated; F17.213 Nicotine dependence, cigarettes, with withdrawal; F19.24 Other psychoactive substance dependence with psychoactive substance-induced mood disorder; R63.4 Abnormal weight loss; Z68.23 Body mass index [BMI] 23.0-23.9, adult
CPT/HCPCS: 36415; 80053; 81003; 81015; 85027; 86593; 87389; 93005; 93010

== ENCOUNTER 2021-02-15 22:29 | Inpatient (IN) | payer OTHER ==
[2021-02-16] MEDS ORDERED: BISMUTH SUBSALICYLATE 524 MG/30 ML PO PRN (00:05)
[2021-02-16] MEDS ORDERED: ACETAMINOPHEN 325 MG TABLET (FP) PO PRN ×2 (00:05)
[2021-02-16] MEDS ORDERED: MAGNESIUM CITRATE 300 ML BOTTLE PO PRN (00:05)
[2021-02-16] MEDS ORDERED: MAGNESIUM HYDROX 2400MG/30ML ORAL SUSPENSION 30 ML CUP PO PRN (00:05)
[2021-02-16] MEDS ORDERED: IBUPROFEN 400 MG TABLET (FP) PO PRN (00:05)
[2021-02-16] MEDS ORDERED: MAG HYDROX/AL HYDROX/SIMETH 30 ML UNIT-DOSE CUP PO PRN (00:05)
[2021-02-16] MEDS ORDERED: MENTHOL/PHENOL 1 EACH UD MM PRN (00:05)
[2021-02-16] MEDS ORDERED: ONDANSETRON *ODT* 4 MG TABLET SL PRN (00:05)
[2021-02-16] MEDS ORDERED: NALOXONE (NARCAN) HCL 4 MG/0.1 ML SPRAY NS PRN (00:05)
[2021-02-16] MEDS ORDERED: cloNIDine HCL 0.1 MG TABLET PO PRN ×2 (00:07→09:41)
[2021-02-16 01:56] VITALS: BMI 24.3
[2021-02-16] MEDS: hydrOXYzine PAMOATE 25 MG CAPSULE (FP) PO PRN ×3 (02:23→17:32)
[2021-02-16] MEDS: METHOCARBAMOL 500 MG TABLET PO PRN (05:48)
[2021-02-16] MEDS: NICOTINE POLACRILEX 2 MG GUM BUC PRN ×3 (05:49→17:35)
[2021-02-16] MEDS ORDERED: methaDONE HCL 10 MG TABLET (FOR DETOX USE ONLY) PO ONE (09:41)
[2021-02-16] MEDS: diazePAM 5 MG TABLET PO PRN ×2 (10:23→17:32)
[2021-02-16] MEDS: NICOTINE 14 MG/24 HOURS TOPICAL PATCH TD SCH (10:24)
[2021-02-16] MEDS: PRENATAL VITAMINS W/ FOLIC ACID TABLET (FP) PO SCH (10:24)
[2021-02-16 14:55] LABS: HEMATOCRIT 38.9 % (35.4-49); HEMOGLOBIN 13.1 GM/dL (11.7-16.9); MCH 30.4 pg (25.7-33.7); MCHC 33.7 g/dl (32.0-35.9); MEAN CELL VOLUME 90.2 fl (80-96); MEAN PLT VOLUME 9.5 fl (7.5-11.1); PLATELET COUNT 239 10^3/uL (134-434); RBC 4.31 M/mm3 (4.00-5.60); RDW 14.7 % (11.9-15.9); WHITE BLOOD COUNT 6.9 K/mm3 (4.0-10.0)
[2021-02-16 15:03] LABS: CALCIUM 8.5 mg/dL (8.5-10.1)
[2021-02-16 15:04] LABS: ALBUMIN 3.3 g/dl (3.4-5.0); BLOOD UREA NITROGEN 12.9 mg/dL (7-18)
[2021-02-16 15:07] LABS: BILIRUBIN,TOTAL 0.2 mg/dL (0.2-1); CREATININE 0.9 mg/dL (0.55-1.3); TOT PROT 6.3 g/dl (6.4-8.2)
[2021-02-16] MEDS: MELATONIN 5 MG TABLETS PO SCH (23:01)
[2021-02-16] MEDS: THIAMINE HCL 100 MG TABLET (FP) PO SCH (23:02)
[2021-02-17] MEDS ORDERED: methaDONE HCL 10 MG TABLET (FOR DETOX USE ONLY) ONE (10:12)
[2021-02-17] MEDS: PRENATAL VITAMINS W/ FOLIC ACID TABLET (FP) PO SCH (10:53)
[2021-02-17] MEDS: hydrOXYzine PAMOATE 25 MG CAPSULE (FP) PO PRN (10:53)
[2021-02-17] MEDS: METHOCARBAMOL 500 MG TABLET PO PRN (10:53)
[2021-02-17] MEDS: diazePAM 5 MG TABLET PO PRN ×3 (10:53→22:13)
[2021-02-17] MEDS: NICOTINE POLACRILEX 2 MG GUM BUC PRN ×2 (10:55→16:59)
[2021-02-17] MEDS: NICOTINE 14 MG/24 HOURS TOPICAL PATCH TD SCH (10:55)
[2021-02-17] MEDS: MELATONIN 5 MG TABLETS PO SCH (22:12)
[2021-02-17] MEDS: THIAMINE HCL 100 MG TABLET (FP) PO SCH (22:12)
[2021-02-18] MEDS ORDERED: methaDONE HCL 10 MG TABLET (FOR DETOX USE ONLY) PO ONE (10:00)
[2021-02-18] MEDS: NICOTINE 14 MG/24 HOURS TOPICAL PATCH TD SCH (10:42)
[2021-02-18] MEDS: diazePAM 5 MG TABLET PO PRN ×3 (10:53→19:32)
[2021-02-18] MEDS: PRENATAL VITAMINS W/ FOLIC ACID TABLET (FP) PO SCH (11:08)
[2021-02-18] MEDS: NICOTINE POLACRILEX 2 MG GUM BUC PRN ×2 (15:30→18:51)
[2021-02-18] MEDS: hydrOXYzine PAMOATE 25 MG CAPSULE (FP) PO PRN (18:49)
[2021-02-18] MEDS: METHOCARBAMOL 500 MG TABLET PO PRN (18:49)
[2021-02-18] MEDS: THIAMINE HCL 100 MG TABLET (FP) PO SCH (22:45)
[2021-02-18] MEDS: MELATONIN 5 MG TABLETS PO SCH (22:45)
[2021-02-19] MEDS ORDERED: methaDONE HCL 10 MG TABLET (FOR DETOX USE ONLY) ONE (09:32)
[2021-02-19] MEDS: NICOTINE 14 MG/24 HOURS TOPICAL PATCH TD SCH (09:44)
[2021-02-19] MEDS: METHOCARBAMOL 500 MG TABLET PO PRN (09:44)
[2021-02-19] MEDS: PRENATAL VITAMINS W/ FOLIC ACID TABLET (FP) PO SCH (09:44)
[2021-02-19] MEDS: NICOTINE POLACRILEX 2 MG GUM BUC PRN ×2 (09:44→11:44)
[2021-02-19 09:54] VITALS: BP 96/57; PULSE 68; TEMP 97.1
[2021-02-20] MEDS ORDERED: methaDONE HCL 10 MG TABLET (FOR DETOX USE ONLY) PO ONE (10:00)
== END 2021-02-19 12:55 | disposition home or self-care (01) | DRG 773 ==
LOC: YASAS 22:29 → Y3N 02-16 00:04
PROVIDERS: ADMIT Allergy & Immunology; ATTEND Allergy & Immunology
PROC: HZ2ZZZZ Detoxification Services for Substance Abuse Treatment (ICD-10-PCS; principal; 2021-02-16)
DX: F11.23 Opioid dependence with withdrawal (principal); F14.20 Cocaine dependence, uncomplicated; F13.10 Sedative, hypnotic or anxiolytic abuse, uncomplicated; F17.210 Nicotine dependence, cigarettes, uncomplicated
CPT/HCPCS: 36415; 80053; 85027; 86780; C9803; J0735; U0003; U0005

== ENCOUNTER 2021-11-14 19:23 | Inpatient (IN) | payer OTHER ==
[2021-11-14 19:50] VITALS: BMI 23.9
[2021-11-14] MEDS ORDERED: MAG HYDROX/AL HYDROX/SIMETH 30 ML UNIT-DOSE CUP PO PRN (20:08)
[2021-11-14] MEDS ORDERED: BENZOCAINE/MENTHOL (CHLORASEPTIC ) LOZENGE MM PRN (20:08)
[2021-11-14] MEDS ORDERED: ACETAMINOPHEN 325 MG TABLET (FP) PO PRN ×2 (20:08)
[2021-11-14] MEDS ORDERED: cloNIDine HCL 0.1 MG TABLET PO PRN (20:08)
[2021-11-14] MEDS ORDERED: NALOXONE HCL 0.4 MG/ML VIAL IM PRN (20:08)
[2021-11-14] MEDS ORDERED: NICOTINE POLACRILEX 2 MG GUM BUC PRN (20:08)
[2021-11-14] MEDS ORDERED: DICYCLOMINE HCL 10 MG CAPSULE PO PRN (20:08)
[2021-11-14] MEDS ORDERED: MAGNESIUM CITRATE 300 ML BOTTLE PO PRN (20:08)
[2021-11-14] MEDS ORDERED: methaDONE HCL 10 MG TABLET (FOR DETOX USE ONLY) PO ONE (20:08)
[2021-11-14] MEDS ORDERED: IBUPROFEN 600 MG TABLET (FP) PO PRN (20:08)
[2021-11-14] MEDS ORDERED: guaiFENesin 200 MG/10 ML 10 ML UNIT-DOSE CUPS PO PRN (20:08)
[2021-11-14] MEDS ORDERED: P-EPHED 60MG/TRIPROLIDI 2.5MG TABLET PO PRN (20:08)
[2021-11-14] MEDS ORDERED: BISMUTH SUBSALICYLATE 524 MG/30 ML PO PRN (20:08)
[2021-11-14] MEDS ORDERED: NALOXONE HCL (KLOXXADO) 8 MG SPRAY NS PRN (20:08)
[2021-11-14] MEDS ORDERED: LOPERAMIDE HCL 2 MG CAPSULE PO PRN (20:08)
[2021-11-14] MEDS ORDERED: IBUPROFEN 400 MG TABLET (FP) PO PRN (20:08)
[2021-11-14] MEDS ORDERED: PROCHLORPERAZINE MALEATE 5 MG TABLET PO PRN (20:08)
[2021-11-14] MEDS ORDERED: MAGNESIUM HYDROX 2400MG/30ML ORAL SUSPENSION 30 ML CUP PO PRN (20:08)
[2021-11-14] MEDS: METHOCARBAMOL 500 MG TABLET PO PRN (22:09)
[2021-11-14] MEDS: MELATONIN 5 MG TABLETS PO SCH (22:10)
[2021-11-14] MEDS: THIAMINE HCL 100 MG TABLET (FP) PO SCH (22:10)
[2021-11-15] MEDS: METHOCARBAMOL 500 MG TABLET PO PRN (05:37)
[2021-11-15] MEDS ORDERED: methaDONE HCL 10 MG TABLET (FOR DETOX USE ONLY) ONE (09:38)
[2021-11-15] MEDS: PRENATAL VITAMINS W/ FOLIC ACID TABLET (FP) PO SCH (10:07)
[2021-11-15] MEDS: diazePAM 5 MG TABLET PO PRN ×3 (10:08→22:17)
[2021-11-15 10:48] LABS: HEMOGLOBIN 12.1 GM/dL (11.7-16.9); MCH 28.1 pg (25.7-33.7); MCHC 33.6 g/dl (32.0-35.9); MEAN CELL VOLUME 83.6 fl (80-96); MEAN PLT VOLUME 8.1 fl (7.5-11.1); PLATELET COUNT 234 10^3/uL (134-434); RDW 14.1 % (11.9-15.9); WHITE BLOOD COUNT 6.6 K/mm3 (4.0-10.0)
[2021-11-15 10:53] LABS: ALBUMIN 3.7 g/dl (3.4-5.0); BLOOD UREA NITROGEN 11.5 mg/dL (7-18)
[2021-11-15 10:56] LABS: CREATININE 0.8 mg/dL (0.55-1.3)
[2021-11-15 10:58] LABS: BILIRUBIN,TOTAL 0.5 mg/dL (0.2-1); TOT PROT 7.1 g/dl (6.4-8.2)
[2021-11-15] MEDS: NICOTINE 21 MG/24 HOURS TOPICAL PATCH TD SCH (10:59)
[2021-11-15] MEDS: MELATONIN 5 MG TABLETS PO SCH (22:17)
[2021-11-15] MEDS: THIAMINE HCL 100 MG TABLET (FP) PO SCH (22:17)
[2021-11-16] MEDS ORDERED: methaDONE HCL 10 MG TABLET (FOR DETOX USE ONLY) PO ONE (10:00)
[2021-11-16] MEDS: PRENATAL VITAMINS W/ FOLIC ACID TABLET (FP) PO SCH (10:19)
[2021-11-16] MEDS: diazePAM 5 MG TABLET PO PRN ×3 (10:20→22:41)
[2021-11-16] MEDS: METHOCARBAMOL 500 MG TABLET PO PRN ×2 (10:20→17:13)
[2021-11-16] MEDS: NICOTINE 21 MG/24 HOURS TOPICAL PATCH TD SCH (10:20)
[2021-11-16] MEDS: MELATONIN 5 MG TABLETS PO SCH (22:38)
[2021-11-16] MEDS: THIAMINE HCL 100 MG TABLET (FP) PO SCH (22:39)
[2021-11-17 09:42] VITALS: BP 104/62; PULSE 74; RESP 20; TEMP 97.5
[2021-11-17] MEDS ORDERED: methaDONE HCL 10 MG TABLET (FOR DETOX USE ONLY) ONE (09:43)
[2021-11-17] MEDS: METHOCARBAMOL 500 MG TABLET PO PRN (10:57)
[2021-11-17] MEDS: PRENATAL VITAMINS W/ FOLIC ACID TABLET (FP) PO SCH (10:58)
[2021-11-17] MEDS: diazePAM 5 MG TABLET PO PRN (10:58)
[2021-11-17] MEDS: NICOTINE 21 MG/24 HOURS TOPICAL PATCH TD SCH (10:58)
[2021-11-18] MEDS ORDERED: methaDONE HCL 10 MG TABLET (FOR DETOX USE ONLY) PO ONE (10:00)
== END 2021-11-17 13:50 | disposition left against medical advice (07) | DRG 770 ==
LOC: YASAS 19:23 → Y6N 21:18
PROVIDERS: ADMIT Allergy & Immunology; ATTEND Surgery
PROC: HZ2ZZZZ Detoxification Services for Substance Abuse Treatment (ICD-10-PCS; principal; 2021-11-14)
DX: F11.23 Opioid dependence with withdrawal (principal); F14.20 Cocaine dependence, uncomplicated; F10.10 Alcohol abuse, uncomplicated; F17.210 Nicotine dependence, cigarettes, uncomplicated; F19.24 Other psychoactive substance dependence with psychoactive substance-induced mood disorder; F41.9 Anxiety disorder, unspecified; Z28.310 Unvaccinated for COVID-19
CPT/HCPCS: 36415; 80053; 85027; 86780; C9803-CS; U0003; U0005